=== PATIENT | male | born 1945 | race Caucasian/White ===

== ENCOUNTER 2021-05-11 14:36 | Outpatient (REF) | payer MEDICARE, SELFPAY ==
--- NOTE | ~2021-05-11 | XR_ITS ---
EXAMINATION: XR THORACIC SPINE CLINICAL INFORMATION: Back pain COMPARISON: Previous chest x-ray April 2018 TECHNIQUE: 3 views of the thoracic spine were obtained. FINDINGS: There is a moderate T6 vertebral body compression fracture that is new in the interval from 2018 but appears old. There is a moderate T7 vertebral body compression fracture that may be recent. There is increased thoracic kyphosis. There is degenerative spondylosis and degenerative disc disease of the mid and lower thoracic spine. Paraspinal soft tissues are unremarkable. XR/XR thoracic spine 3V IMPRESSION: Increased thoracic kyphosis. T6 and T7 vertebral body compression fractures. The T7 vertebral body compression fracture may be recent. Degenerative changes of the mid and lower thoracic spine.
== END 2021-05-11 14:37 | disposition home or self-care (01) ==
LOC: HO.HMGCX 14:36
PROVIDERS: PCP Internal Medicine; Visit Provider Internal Medicine
DX: Z13.89 Encounter for screening for other disorder (principal)
CPT/HCPCS: 72072

== ENCOUNTER 2021-06-18 13:27 | Outpatient (REF) | payer MEDICARE, SELFPAY ==
--- NOTE | ~2021-06-18 | MM_ITS ---
EXAMINATION: BONE DENSITOMETRY CLINICAL INDICATION: History of vertebral fractures. COMPARISON: This is the patient's baseline examination. TECHNIQUE: Using a [employer] DXA System (software version: 13.1) manufactured by [employer], dual-energy x-ray absorptiometry was performed of the lumbar spine and left hip. The images are of good technical quality. Summary results are attached. FINDINGS: AP SPINE L1-L4: BMD 0.914 g/cm2, Z-score -2.4, T-score -2.5, osteoporosis. LEFT FEMUR, NECK: BMD 0.735 g/cm2, Z-score -1.5, T-score -2.6, osteoporosis. LEFT FEMUR, TOTAL: BMD 0.749 g/cm2, Z-score -1.9, T-score -2.4, osteopenia. IDENTIFIED RISK FACTORS: Tobacco use (current smoker), history of fracture (adult). HISTORY OF FRACTURE: Tibia. Mild wedging mid thoracic vertebrae with accentuated thoracic kyphosis. MEDICATIONS: Calcium supplements or multivitamin, vitamin D. MM/XR DEXA axial skeleton IMPRESSION: 1. DIAGNOSIS: Osteoporosis based on the lowest T-score value of -2.6 in the femoral neck applying World Health Organization criteria. 2. 10-YEAR FRACTURE RISK PREDICTION, FRAX: Not performed due to previous hip/vertebral fracture. 3. Treatment Recommendations: NOF guidelines recommend consideration for treatment in postmenopausal women and men age 50 and older presenting with the following: -A hip or vertebral (clinical or morphometric) fracture. -T-score less than or equal to -2.5 at the femoral neck or spine after appropriate evaluation to exclude secondary causes. -Low bone mass at the hip or spine and a 10-year fracture probability by FRAX of greater than or equal to 3% for hip fracture or greater than or equal to 20% for major osteoporotic fracture based on the [place] adapted WHO algorithm. 4. Other Recommendations: All treatment decisions require clinical judgment and consideration of individual patient factors, including patient preferences, comorbidities, previous drug use, risk factors not captured in the FRAX model (e.g. frailty, falls, vitamin D deficiency, increased bone turnover, interval significant decline in bone density) and possible under or overestimation of fracture risk by FRAX. Additional medical evaluation for secondary cause of low bone mineral density may be appropriate. FUTURE SCAN RECOMMENDATION: People with diagnosed cases of osteoporosis or at high risk for fracture should have regular bone mineral density tests. For patients eligible for Medicare, routine testing is allowed once every 2 years. The testing frequency can be increased to one year for patients who have rapidly progressing disease, those who are receiving or discontinuing medical therapy to restore bone mass, or have additional risk factors.
[2021-06-18 15:44] LABS: Vitamin D 25-OH Total 50.7 ng/mL (>30)
== END 2021-06-18 13:28 | disposition home or self-care (01) ==
LOC: HO.MAMMO 13:27
PROVIDERS: Visit Provider Internal Medicine
DX: Z13.820 Encounter for screening for osteoporosis (principal); M81.0 Age-related osteoporosis without current pathological fracture; S22.000D Wedge compression fracture of unspecified thoracic vertebra, subsequent encounter for fracture with routine healing; Z79.899 Other long term (current) drug therapy
CPT/HCPCS: 36415; 77080; 82306

== ENCOUNTER 2024-02-22 08:26 | Outpatient (REF) | payer MEDICARE, SELFPAY ==
--- NOTE | ~2024-02-22 | XR_ITS ---
EXAMINATION: XR LUMBOSACRAL SPINE CLINICAL INFORMATION: Lower back pain COMPARISON: None available. TECHNIQUE: Three views of the lumbosacral spine. FINDINGS: The bones are diffusely demineralized. There is slight leftward translation of the L1 vertebral body with respect to L2. There is mild compression fracture of the L2 vertebral body. There is disc space narrowing at L3-L4, L4-L5 and L5-S1. There is marked degenerative facet joint disease at L5-S1. There is mild retrolisthesis of L3 respect to L4. The distal abdominal aorta measures 3.4 cm anterior to posterior. XR/XR lumbar spine 2-3V IMPRESSION: 1. Multilevel degenerative disc disease and degenerative facet joint disease. 2. Mild retrolisthesis of L3 with respect to L4. 3. Mild compression fracture of the L2 vertebral body. 4. DISTAL ABDOMINAL AORTIC ANEURYSM. Ultrasound is recommended for further evaluation.
--- NOTE | ~2024-02-22 | XR_ITS ---
EXAMINATION: XR THORACOLUMBAR SPINE CLINICAL INFORMATION: Lower thoracic, upper lumbar back pain COMPARISON: Thoracic spine 05/11/2021 TECHNIQUE: AP and lateral view of the thoracic spine. FINDINGS: The bones are diffusely demineralized. No significant change in T6 vertebral body compression fracture. No significant change in moderate T7 vertebral body compression fracture. There is interval moderate compression of the T12 vertebral body. No significant change in minimal compression of the T5 compression fracture. There is severe kyphosis. There is multilevel degenerative disc disease with anterior marginal osteophytes. The aortic arch is prominent with calcification indicative of atherosclerotic disease. The descending thoracic aorta measures 4.4 cm in transverse dimension. No change in right paraspinal fullness which is likely vascular in origin. XR/XR thoracic spine 2V IMPRESSION: 1. Interval moderate compression of the T12 vertebral body. 2. No significant change in moderate T6 vertebral body compression fracture. 3. No significant change in moderate T7 vertebral body compression fracture. 4. Severe kyphosis. 5. Question of dilatation of the descending thoracic aorta. If of clinical concern, CT scan could be obtained.
== END 2024-02-22 08:27 | disposition home or self-care (01) ==
LOC: HO.HMGCX 08:26
PROVIDERS: PCP Internal Medicine; Visit Provider Internal Medicine
DX: M54.6 Pain in thoracic spine (principal); M54.50 Low back pain, unspecified
CPT/HCPCS: 72070; 72100

== ENCOUNTER 2024-05-01 07:30 | Outpatient (REF) | payer MEDICARE, SELFPAY ==
--- NOTE | ~2024-05-01 | CT_ITS ---
EXAMINATION: CT ANGIOGRAM OF THE CHEST, ABDOMEN WITHOUT AND WITH CONTRAST CLINICAL INFORMATION: Aortic aneurysm COMPARISON: None. TECHNIQUE: Multidetector volumetric CT imaging of the chest, abdomen, and pelvis was performed before and after the administration of 80 mL of Omnipaque 350 intravenous contrast without immediate adverse reactions. 3D POSTPROCESSING: Multiple 3-D angiographic images were processed from the initial data set by the laboratory technologist at the modality workstation under concurrent physician supervision. DOSE LOWERING TECHNIQUES: This CT examination was performed using dose optimization techniques as appropriate, variously including the following: - Automated exposure control - Adjustment of mA and/or kV according to patient size (this includes techniques or standardized protocols for targeted exams where dose is matched to indication/reason for exam; i.e. extremities or head) - Use of iterative reconstruction technique DLP: 245 mGy-cm. FINDINGS: VASCULAR: ASCENDING AORTA: Mildly dilated. Mid segment measures 4.0 x 3.9 cm. Scattered atherosclerotic wall calcifications. AORTIC ARCH: Normal in caliber measuring 3.3 x 2.8 cm. Calcified and noncalcified plaque is present. The vessel arch anatomy is present. There is eccentric noncalcified plaque in the proximal left subclavian artery causing a borderline mild to moderate stenosis. Remaining branch vessels are patent DESCENDING AORTA: Normal in caliber and patent. Mid segment measures 3.4 x 3.3 cm. Scattered calcified and noncalcified plaque ABDOMINAL AORTA: Mild fusiform aneurysms seen in the infrarenal abdominal aorta with maximum diameter of 3.0 x 2.8 cm. There is a large amount of noncalcified plaque within the infrarenal abdominal aorta with irregular lumen and mild luminal stenosis. CELIOMESENTERIC ARTERIES: Celiac artery, superior mesenteric artery and inferior mesenteric artery are patent without significant stenosis. RENAL ARTERIES: Single right renal artery. Calcified plaque seen at the ostium of the right renal artery without significant stenosis. There are 2 left renal arteries with a smaller accessory lower pole artery is present. Calcified plaque seen at the ostium of the main left renal artery with mild stenosis RIGHT ILIOFEMORAL ARTERIES: Calcified and noncalcified atherosclerotic plaque is seen in the common iliac artery without significant stenosis. 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 Scattered calcified plaque is seen throughout the iliac arteries. No significant stenosis NONVASCULAR: LUNGS: Mild to moderate centrilobular emphysema. Subpleural atelectasis seen in the lingula. No focal infiltrates. There is a 6 mm nodule in the left lower lobe. MEDIASTINUM: Heart is normal in size. Pericardium is normal. No mediastinal or hilar lymphadenopathy. CORONARY ARTERY CALCIFICATION: Present PLEURA: There is no pleural effusion. No pleural mass or thickening. LIVER, GALLBLADDER, AND BILIARY TREE: The liver is normal in size, shape, and attenuation. No focal hepatic lesion or biliary ductal dilatation is present. The gallbladder is unremarkable with no evidence of radiopaque gallstones, gallbladder wall thickening, or obvious pericholecystic inflammatory changes. PANCREAS: Unremarkable. SPLEEN: Unremarkable. ADRENAL GLANDS: Unremarkable. KIDNEYS AND URETERS: The kidneys are normal in size, shape, and attenuation. No hydronephrosis, hydroureter, or calculi seen. No perinephric stranding. Simple fluid density cyst in the upper pole the right kidney measuring 3.1 cm. No follow-up indicated. GASTROINTESTINAL TRACT: The small and large bowel are unremarkable. The appendix is unremarkable. ABDOMINAL WALL: No significant hernia is appreciated. LYMPH NODES: Normal. OSSEOUS STRUCTURES: Age-indeterminate compression fracture of T12 CT/CT angio chest aorta IMPRESSION: 1. Mild dilation of the ascending thoracic aorta with maximum diameter 4.0 cm. 2. 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 Large amount of noncalcified plaque with irregular lumen and mild luminal stenosis.Based on published guidelines in J Am Norma Radiol 2013; 10(10):789-794 and J Vasc Surg. 2018; 67:2-77, the recommendation for an abdominal aortic aneurysm with diameter 3.0-3.4 cm is follow-up every 3 years. 3. 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 4. Emphysema. 6 mm nodule in the left lower lobe. According to the UPDATED 2017 Fleischner Society recommendations, the advised follow-up imaging for a single 6-8 mm solid nodule is follow-up CT at 6 to 12 months. In high-risk patients, subsequent CT follow-up at 18 to 24 months is recommended. In low-risk patients, subsequent CT follow-up at 18 to 24 months is optional.
[2024-05-01] MEDS: iohexoL 350 MG/ML 100 ML INFUS..BTL 80 ML IV (08:45)
[2024-05-02 10:36] LABS: Creatinine POC 0.6 mg/dL (0.5-1.4); GFR POC > 60
== END 2024-05-01 07:31 | disposition home or self-care (01) ==
LOC: HO.CT 07:30
PROVIDERS: PCP Internal Medicine; Visit Provider Internal Medicine
DX: I71.40 Abdominal aortic aneurysm, without rupture, unspecified (principal)
CPT/HCPCS: 71275; 74175; 82565; Q9967

== ENCOUNTER 2024-05-07 13:49 | Outpatient (AMB) | payer MEDICARE, SELFPAY ==
--- NOTE | 2024-05-07 14:06 | MHC.OFFVIS ---
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 Allergies aspirin [ASA] Allergy (Mild, Unverified 07/03/20 16:19) ANGIOEDEMA Aspir-81 Allergy (Unknown, Uncoded 12/11/19 00:00) Medication List - Last Reconciled 05/07/24 by Horacio Rahman MD allopurinol 300 mg PO DAILY apixaban (Eliquis) 5 mg PO BID ascorbic acid (vitamin C) 2 grams PO Q8H atorvastatin 10 mg PO BEDTIME biotin mcg PO cholecalciferol (vitamin D3) 125 mcg PO DAILY furosemide 40 mg PO BID metoprolol succinate ER 50 mg PO DAILY vqtugqwrmvga-pappwwzr-[id number] 1 tab PO DAILY HPI Comments Details: Andrew was referred here for evaluation of new onset atrial fibrillation that was recently detected about couple months ago when he had a home visit for his spine symptoms which he self diagnosed compression fracture and was later confirmed by spine x-ray. During that time was noted to irregular heartbeat and subsequent EKG confirmed presence of atrial fibrillation and was started on adequately oral anticoagulation therapy. He has been on metoprolol therapy in the past and is currently 50 mg of metoprolol. No symptoms of palpitations. Last time he says he had a disc herniation September but did not seek medical care. No EKGs were performed. Last time he might have seen you about couple years ago he is not sure about it. He said couple years ago he was exposed to chemical and had subsequently developed shortness of breath. Unsure as to this duration of atrial fibrillation as he has not had regular visits with you. He has prior history of hypertension which is currently controlled. He said he intermittently gets short of breath and then subsequently gets urge to urinate and then his shortness of breath improves. He has not a great historian. He has been on Lasix for many years for bilateral leg swelling. Never been diagnose with congestive heart failure in the past. However he says if he reduces his Lasix dose he does have increased swelling of both his legs and has to take current dose of 40 mg b.i.d.. This is been going on for many years before the diagnose of atrial fibrillation. He denies any classic symptoms atrial fibrillation of palpitations, irregular heartbeat, lightheadedness. Denies any exertional chest pain. 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 He has not had any bleeding issues or neurologic events. [facility] Medical History HTN (hypertension) Persistent atrial fibrillation Surgical History History of surgery on lower extremity Hx of hernia repair Family History Father No problems noted. Mother No problems noted. Social History Patient Tobacco Use Status: Current everyday Tobacco user Review of Systems Const Denies chills, Denies daytime sleepiness, Denies fatigue, Denies fever(s), Denies frequent falls, Denies poor appetite, Denies snoring, Denies stops breathing during sleep, Denies weakness, Denies weight gain and Denies weight loss Eyes Denies loss of vision ENT Denies dizziness and Denies hearing loss Card Denies chest pain, Denies claudication, Denies leg edema, Denies lightheadedness, Denies palpitations, Denies dyspnea, Denies dyspnea on exertion and Denies orthopnea Resp Denies cough, Denies excessive phlegm production, Denies dyspnea, Denies dyspnea on exertion, Denies snoring and Denies wheezing GI Denies abdominal pain, Denies hematochezia, Denies change in bowel habits, Denies nausea and Denies vomiting Denies dysuria and Denies urinary frequency Musc Denies arthralgias, Denies muscle weakness, Denies numbness and Denies other (frequent falls) Skin/Breast Denies nail changes and Denies rash Neuro Denies Abnormal speech present, Denies dizziness, Denies frequent falls, Denies loss of vision, Denies memory loss, Denies numbness and Denies weakness Psych Denies depression and Denies memory loss Endo Denies fatigue and Denies palpitations Clayton/Lymph Reports easy bruising and Reports other (anemia) Aller/Immun Denies wheezing Physical Exam Vital Signs: Last Vital Signs Pulse 119 H 05/07/24 14:07 BP 126/82 05/07/24 14:07 BMI result Body Mass Index 28.0 Const General: cooperative, comfortable, no acute distress, awake and Physically active Nutritional Appearance: obese Orientation/consciousness: patient oriented x3 Limitations: no limitations HEENT Head: Yes normocephalic and Yes atraumatic Neck Neck: Yes trachea midline, Yes supple and Yes no JVD Chest Other: Dorsal kyphosis Resp Effort & Inspection: normal respiratory effort Auscultation: clear to auscultation bilaterally Cardio Jugular venous distension: no JVD Rate: tachycardic Rhythm: abnormal rhythm irregularly irregular Heart sounds: S1 normal heart sound present, S2 normal heart sound present, no click, no gallops and no rubs GI Inspection: Yes obesity Auscultation: normal bowel sounds Skin General skin exam: no rashes or lesions noted Neuro General: patient oriented x3 and no focal motor deficits Speech: No Abnormal speech present Extrem General: Yes no clubbing, cyanosis or edema Psych Appearance: grossly normal Office Procedures EKG Details: EKG shows atrial fibrillation with rapid ventricular response with PVC with nonspecific ST T wave changes. [id number], Complete Assessment & Plan Assessment & Plan (1) Persistent atrial fibrillation: Code(s): I48.19 - Other persistent atrial fibrillation Category: Medical Plan: Newly detected atrial fibrillation in the last 2 months which was incidental without any obvious symptoms. Exact duration of atrial fibrillation unclear as he has not had regular visits with a physician. He denies any symptoms of palpitation and today despite his heart rate 120s has no symptoms of palpitation fluttering in his chest. He does have exertional shortness of breath for couple years and does not think that this is cardiac related. He said he was exposed to a chemical few years ago and that led to his symptoms of shortness of breath. He does have also significant kyphosis. He has been on Lasix for many years before even his symptoms of shortness of breath for bilateral leg edema. He has never been diagnose with congestive heart failure in the past although is at high risk for the same. He has intermittent symptoms of significant shortness of breath which responds to natural natriuresis. For now clinically does appear to be in overt heart failure. Duration of atrial fibrillation exactly unknown and his further treatment based on the findings of underlying structural abnormality. I would suggest an echocardiogram in near future as soon as possible to assess for biatrial chamber size and LV function. If he has significant biatrial enlargement will require antiarrhythmic drug support prior to pursuing rhythm control approach. This was discussed with him in details. All of the clinical data suggest to pursue rhythm control approach in newly diagnose atrial fibrillation with do the same. We discussed about synchronized cardioversion with the procedure in detail including risks, benefits and alternatives. Absolute importance of continue full oral anticoagulation long-term was discussed. CHADSVASc score of at least 3. Will increase metoprolol to 100 mg daily given poor rate control. Management of atrial fibrillation discussed in details, he was accompanied by his daughter who is a nurse and she understands management well. (2) HTN (hypertension): Code(s): I10 - Essential (primary) hypertension Category: Medical Plan: Hypertension which is currently well optimized advised to monitor blood pressure at home maintain a log. Goal blood pressure less than 130/84. Advised low-salt diet. Continue current treatment. Consider workup for sleep apnea. Will follow up after cardioversion. Thank you for allowing me to partake in his care Orders: Orders Lipid Panel 05/07/24 I48.19 - Other persistent atrial fibrillation CA echo transthoracic complete 05/07/24 I48.19 - Other persistent atrial fibrillation Complete Blood Count no Diff 05/07/24 I48.19 - Other persistent atrial fibrillation Basic Metabolic Panel 05/07/24 I48.19 - Other persistent atrial fibrillation B Type Natriuretic Peptide 05/07/24 I48.19 - Other persistent atrial fibrillation Medications: New metoprolol succinate ER (Toprol XL) 100 mg PO DAILY 30 tabs 5RF I48.19 - Other persistent atrial fibrillation Coding Level of Care Code New Pt Level 4 (80032) Diagnoses Persistent atrial fibrillation I48.19 HTN (hypertension) I10 CPT Codes EKG - CPT: 03319-[id number], Complete ([id number])
[2024-05-07 14:07] VITALS: BP 126/82; PULSE 119; BMI 28.0
== END 2024-05-07 14:57 | disposition home or self-care (01) ==
PROVIDERS: PCP Internal Medicine; Visit Provider Internal Medicine Cardiovascular Disease
DX: I48.19 Other persistent atrial fibrillation (principal); I10 Essential (primary) hypertension
CPT/HCPCS: 93010; 99204

== ENCOUNTER → 2024-05-07 13:49 | Outpatient (REF) | payer MEDICARE, SELFPAY | LOC: HO.CARD 13:49 | PROVIDERS: PCP Internal Medicine; Visit Provider Internal Medicine Cardiovascular Disease | DX: I48.19 Other persistent atrial fibrillation (principal); I10 Essential (primary) hypertension | CPT/HCPCS: 93005; 99202 ==

== ENCOUNTER → 2024-05-10 07:39 | Outpatient (REF) | payer MEDICARE, SELFPAY ==
--- NOTE | 2024-05-10 07:55 | CA_ITS ---
Transthoracic Echocardiogram Patient (Last, First, Middle): Andrew Orlando R Gender: Male Date of : 1945 Age: 78 Procedure Date: 05/10/2024 Procedure Type: Transthoracic Echocardiogram Location: OP Height: 182.88 cm Weight: 90.72 kg BSA: 2.13 m2 Heart Rate: bpm BP: 130 / 85 mmHg Sanitation Supervisor: ALESSANDRO Referring MD: Horacio Rahman MD Symptoms: I48.19 - Other persistent atrial fibrillation Study Quality: Adequate w/Contrast ECG Rhythm: Atrial Fibrillation Conclusions: - The left ventricular systolic function is severely decreased. The visually estimated ejection fraction is between 15-20%. - No obvious valvular pathology seen on this study. Findings Procedure Information Contrast agent, definity, is being given per protocol without apparent complications. Left Ventricle Normal left ventricular cavity size. There is mildly increased left ventricular wall thickness. The left ventricular systolic function is severely decreased. The visually estimated ejection fraction is between 15 20%. There is severe global hypokinesis. Diastolic function is indeterminate on the basis of available data. Right Ventricle Mildly increased right ventricular cavity size. There is mildly decreased right ventricular systolic function. Atria The left atrium is moderately dilated. The right atrium is mildly dilated. Aortic Valve There is mild calcification of the aortic valve. There is no aortic valve stenosis. There is no aortic valve regurgitation. Mitral Valve There is mild mitral annular calcification. There is trace mitral valve regurgitation. There is no mitral valve stenosis. Pulmonic Valve The pulmonic valve is likely normal. Tricuspid Valve There is mild tricuspid valve regurgitation. There is no evidence of pulmonary hypertension. Great Vessels The asc aorta and aortic arch are normal in size. Venous The inferior vena cava is normal in size and collapses greater than 50% with inspiration. Pericardium/Pleural There is no evidence of pericardial effusion. Prior Study Comparison Changes noted compared to prior study dated: 05/02/2017. LVEF is diminished. Recommendations, Care & Conclusions No obvious valvular pathology seen on this study. Measurements 2D Linear Measurements IVSd: 1.19 0.6-0.9/0.6-1.0 cm LVIDd: 5.15 3.9-5.3/4.2-5.9 cm LVIDd Index: 2.42 2.4-3.2/2.2-3.1 cm/m2 LVIDs: 4.14 2.0-3.6 cm LVPWd: 1.16 0.7-1.1 cm LA Diam: 5.30 2.7-3.8/3.0-4.0 cm LAIDs Index: 2.49 1.5-2.3 cm/m2 LV Mass: 296.70 67-162/88-224 g LV Mass Index: 139.29 43-95/49-115 g/m2 LVOT Diam: 2.10 3.0+(-)1.3 cm 2D Systolic Function EF 4C: 26.40 >55% EF 2C: 12.20 >55% EF BiP: 18.50 >55% Mitral Valve MV Pk E: 0.71 MV Decel Time: 184.00 E'Lateral: 7.40 E'Medial: 5.08 E/E' Med: 14.00 E/E' Lat: 9.60 PHT: 54.00 MVA PHT: 4.07 Decel Fisher: 3.87 Aortic Valve AoV Pk Vitaliy: 1.04 AoV Mn Vitaliy: 0.76 AoV VTI: 0.17 AoV Pk Grad: 4.00 Aov Mn Grad: 3.00 JODI Cont.VTI: 2.40 LVOT LVOT Pk Vitaliy: 0.80 LVOT Mn Vitaliy: 0.52 LVOT VTI: 0.12 LVOT Pk Grad: 3.00 LVOT Mn Grad: 1.00 LVOT Diam: 2.10 LVOT Area: 3.46 Diastolic Function MV Pk E: 0.71 E'Medial: 5.08 E/E' Med: 14.00 E' Laterial: 7.40 E/E' Lat: 9.60 Right Ventricle TAPSE (mm): 12.10 TVS' Vitaliy: 8.23 Tricuspid Valve TR Pk Vitaliy: 2.50 TR Pk Grad: 25.00 RA Press: 3.00 RVSP: 28.00 Great Vessels Aorta Sinus of Valsalva: 3.40 2.0-3.5 cm Ao Asc: 3.90 2.1-3.4 cm Ao Arch: 3.50 Updated in Other Vendor System with Status of Final Rafael Alvarado MD electronically signed on 05/10/2024 11:13:38 AM with status of Final
[2024-05-10 08:12] LABS: Hematocrit 45.2 % (42.0-52.0); Hemoglobin 14.9 g/dl (14.0-18.0); Mean Corpuscular Hemoglobin 33.9 pg (27.0-33.0); Mean Corpuscular Volume 102.7 fL (80.0-98.0); Mean Platelet Volume 10.9 fL (9.4-12.4); Platelet Count 161 X10*3/uL (160-400); Red Cell Distribution Width 13.3 % (11.0-16.0); White Blood Count 10.7 X10*3/uL (4.8-10.8)
[2024-05-10 08:35] LABS: Anion Gap 19 (12-20); Blood Urea Nitrogen 20 mg/dL (9-16); Calcium 10.1 mg/dL (8.4-10.2); Carbon Dioxide 25 mmol/L (22-29); Chloride 102 mmol/L (96-108); Cholesterol 144 mg/dL (<200); Estimated Glomerular Filt Rate > 60; Glucose Random 158 mg/dL (60-115); HDL Cholesterol 47 mg/dL (>40); LDL Cholesterol Calculated 79 mg/dL (<100); Potassium 4.2 mmol/L (3.3-5.1); Sodium 142 mmol/L (135-145); Triglycerides 94 mg/dL (<150)
[2024-05-10 08:40] LABS: B Type Natriuretic Peptide 314 pg/mL (<100)
== END ==
LOC: HO.CARD 07:39
PROVIDERS: PCP Internal Medicine; Visit Provider Internal Medicine Cardiovascular Disease
DX: Z13.6 Encounter for screening for cardiovascular disorders (principal); I48.19 Other persistent atrial fibrillation
CPT/HCPCS: 36415; 80048; 80061; 83880; 85027; 93306; Q9957

== ENCOUNTER → 2024-05-10 07:55 | Outpatient (BNV) | payer MEDICARE, SELFPAY | PROVIDERS: PCP Internal Medicine; Visit Provider Internal Medicine | DX: I36.1 Nonrheumatic tricuspid (valve) insufficiency (principal); I34.81 Nonrheumatic mitral (valve) annulus calcification; I35.8 Other nonrheumatic aortic valve disorders; R93.1 Abnormal findings on diagnostic imaging of heart and coronary circulation | CPT/HCPCS: 93306 ==

== ENCOUNTER → 2024-06-22 07:39 | Outpatient (REF) | payer MEDICARE, SELFPAY ==
--- NOTE | ~2024-06-22 | NM_ITS ---
Lexiscan Myocardial perfusion study Indication: Atrial fibrillation with LV systolic dysfunction to evaluate for myocardial ischemia Technique: The patient was brought in for a Lexiscan perfusion study on 06/22/2024 and was injected 0.4 mg of Lexiscan intravenously. Within a minute of this injection 30 mCi of sestamibi was given intravenously. Images were obtained using the SPECT gamma camera interlaced with the gating device. Images were obtained in supine position. Resting perfusion study was performed on 06/25/2024. Patient was administered 30 mCi of sestamibi intravenously at rest. Images were then obtained in supine position. Images were obtained without without CT attenuation. Total DLP 120 mGy-cm. Images were processed with the software and compared side to side in short axis, horizontal long axis and vertical long axis views. Findings: The stress perfusion study showed nonattenuated images show mildly reduced uptake in the distal anterior wall of the myocardium, moderately reduced uptake in the apex of the myocardium and mildly reduced uptake in the distal lateral and inferolateral wall of the LV myocardium. Attenuated corrected images show mildly reduced uptake in the distal anterior and apical wall of the LV myocardium. The gated study shows reduced LV systolic function with calculated LVEF of 36%. LV cavity is mildly to moderately in size. The gated study shows diffusely reduced wall thickening and contraction of segments. Resting study shows nonattenuated images show improved uptake in the distal anterior as well as apex of the LV myocardium with no improvement in the distal lateral and inferolateral wall. Attenuated corrected images show improved uptake in the distal anterior and apical wall of the LV myocardium. Gating at rest reveals diffuse wall motion abnormality with ejection fraction at 39%. The findings are consistent with suggestive of mild ischemia of the distal anterior and apical wall in the mid to distal LAD territory.. NM/NM cardiolite stress test Impression: 1. Myocardial perfusion imaging study shows mild ischemia mid to distal LAD territory. 2. Gated LVEF is 36% with stress 3. Transient ischemic dilatation present Nondiagnostic changes on EKG. Electronically signed by: Horacio Rahman MD 06/26/2024 04:24 PM EDT
--- NOTE | 2024-06-22 07:43 | CA_ITS ---
Acquisition Time: 2024-06-22 07:58:12 Total Exercise Time: 00:02:00 Test Indications: AFIB, SOB Medications: SEE H Protocol: LEXISCAN Max HR: 121 BPM 84% of Pred: 144 BPM Max BP: 138/078 mmHG Max Work Load: 1.0 METS Pharmacological stress test with Lexiscan injection, while sitting and moving left arm, without anginal symptoms, with isolated PVCs, with normotensive response to injection, with nondiagnostic EKG for ischemia. In recovery he was treated with Aminophylline 75mg IVP to reverse Lexiscan. Nuclear images pending. Test reviewed with Dr Alvarado. Note: 20 min prior to start of test he had Afib rates 90s- low 100s sitting. He was given Metoprolol tartrate 25mg po. He had not taken his usual Metoprolol yet this am. Referred By: Horacio Rahman Overread By: ANA MARIA LAINEZ
== END ==
LOC: HO.CARD 07:39
PROVIDERS: PCP Internal Medicine; Visit Provider Internal Medicine Cardiovascular Disease
DX: I48.19 Other persistent atrial fibrillation (principal); R06.02 Shortness of breath; I10 Essential (primary) hypertension
CPT/HCPCS: 78452; 93017; A9500; J0280; J2785

== ENCOUNTER → 2024-06-22 07:43 | Outpatient (BNV) | payer MEDICARE, SELFPAY | PROVIDERS: PCP Internal Medicine; Visit Provider Nurse Practitioner Family | DX: I48.91 Unspecified atrial fibrillation (principal) | CPT/HCPCS: 78452; 93016; 93018 ==

== ENCOUNTER 2025-04-15 12:00 | Outpatient (REF) | payer MEDICARE, SELFPAY ==
--- OUTSIDE RECORDS SUMMARY | 2025-04-15 12:42 | XMS_ITS | Patient Health Record ---
Author Organization [facility] Address [address] [place] [address] Care Team Providers Care Mask Inspector Name Role Phone Osiel Butts MD Primary Care Provider Unavailab Zechariah David Unavailable [phone] Reason For Referral No Information Medications Medication SIG (Take, Route, Frequency, Duration) Notes Start Date End Date Status Furosemide 40 MG TAKE 1 TABLET BY ILYA TH TWICE A DAY Oral for 90 Active Allopurinol 300 MG TAKE 1 TABLET BY ILYA TH EVERY DAY Oral for 90 Active Metoprolol Tartrate 50 MG TAKE 1 TABLET BY MOUTH EVERY DAY Oral for 90 Active Atorvastatin Calcium 10 MG TAKE 1 TABLET BY MOUTH EVERY DAY Oral for 90 Active Immunizations Vaccine Route Administration Date Status Comme nts Influenza Unknown 10/13/2022 Refused Social History Tobacco Use: Social History Observation Description Date Details (start date - stop date) Current Smoker NA - NA Tobacco Use/Smoking Question Answer Notes Patient is a current smoker Alcohol Screen Question Answer Notes Did you have a drink contain ing alcohol in the past year? Yes How often did you have a dri nk containing alcohol in the past year? 2 to 4 times a month (2 points) How many drinks did you have on a typical day when you were drinking in the past year? 1 or 2 drinks (0 point) How often did you have 6 or more drinks on one occasion in the past year? Never (0 point) Points 2 Interpretation Negative Section Notes: Smokes 7-8 cigs QD; no sig a lcohol Problems Problem Type SNOMED Code ICD Code Onset Dates Problem Status W/U Status Risk Notes Problem [id number] Heme + stool (R19.5) Active confirmed Plan Of Treatment No Information Insurance Providers Payer Name Payer Address Payer Phone Subscriber Number Group Number Insured Name Patient Relationship to Insured Coverage Start Date Coverage End Date MEDICARE OF [place] [address] [place] [id number] [phone] [id number] GEOVANNY MONREAL Self - patient is the insured [employer] ATT[employer] CLAIMS [address] [place] [address] [id number] GEOVANNY MONREAL Self - patient is the insured Medical (General) History Medical History History ICD Code COPD Follicular lymphoma [address] Carbajal Gout Edema HTN Denies [place],DM,CVA,renal disease Surgical History Surgery Date(Month/Year) Right hernia repair Left leg fracture
[2025-04-15 13:13] LABS: MANUAL DIFF FLAG NO
[2025-04-15 13:25] LABS: Basophils Absolute Auto 0.1 X10*3/uL (0.0-0.2); Basophils Percent Auto 0.8 % (0-2); Eosinophils Absolute Auto 0.3 X10*3/uL (0.0-0.4); Eosinophils Percent Auto 3.5 % (0-4); Hemoglobin 15.3 g/dl (14.0-18.0); Imm Gran Abs Auto 0.03 X10*3/uL (0.00-0.03); Imm Gran Pct Auto 0.3 % (0.0-0.4); Lymphocytes Absolute Auto 3.5 X10*3/uL (1.2-4.9); Lymphocytes Percent Auto 38.6 % (20-40); Mean Corpuscular HGB Conc 33.3 g/dl (31.0-36.0); Mean Corpuscular Hemoglobin 33.8 pg (27.0-33.0); Mean Corpuscular Volume 101.8 fL (80.0-98.0); Mean Platelet Volume 11.8 fL (9.4-12.4); Monocytes Absolute Auto 1.1 X10*3/uL (0.1-1.2); Monocytes Percent Auto 12.4 % (2-11); Neutrophils Absolute Auto 4.1 x10*3/uL (2.0-8.3); Neutrophils Percent Auto 44.4 % (45-73); Platelet Count 148 X10*3/uL (160-400); Red Blood Count 4.52 X10*6/uL (4.60-5.80); Red Cell Distribution Width 13.2 % (11.0-16.0); White Blood Count 9.2 X10*3/uL (4.8-10.8)
[2025-04-15 14:13] LABS: Alanine Aminotransferase 33 U/L (0-40); Albumin Level 4.5 g/dL (3.5-5.0); Alkaline Phosphatase 100 U/L (39-117); Anion Gap 17 (12-20); Aspartate Amino Transferase 33 U/L (5-37); Bilirubin Total 0.9 mg/dL (0.0-1.0); Blood Urea Nitrogen 16 mg/dL (9-16); Calcium 9.9 mg/dL (8.4-10.2); Carbon Dioxide 28 mmol/L (22-29); Chloride 101 mmol/L (96-108); Cholesterol 137 mg/dL (<200); Estimated Glomerular Filt Rate > 60; Glucose Fasting 163 mg/dL (60-99); HDL Cholesterol 42 mg/dL (>40); LDL Cholesterol Calculated 74 mg/dL (<100); Potassium 4.6 mmol/L (3.3-5.1); Sodium 141 mmol/L (135-145); Total Protein 7.4 g/dL (6.5-8.0); Triglycerides 108 mg/dL (<150); Uric Acid 5.7 mg/dL (3.4-7.0)
== END 2025-04-15 12:01 | disposition home or self-care (01) ==
LOC: HO.HMGCLDS 12:00
PROVIDERS: PCP Internal Medicine; Referring Provider Internal Medicine Cardiovascular Disease; Visit Provider Internal Medicine
DX: E78.5 Hyperlipidemia, unspecified (principal); M10.9 Gout, unspecified; R53.83 Other fatigue
CPT/HCPCS: 36415; 80053; 80061; 84550; 85025

== ENCOUNTER 2025-06-10 15:00 | Outpatient (AMB) | payer MEDICARE, SELFPAY ==
--- NOTE | 2025-06-10 15:02 | A.OFFVIS_ITS ---
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[employer] Required: No Education Department Chair: Education Department Chair Present Accompanied by: Daughter Allergies aspirin (ASA) Allergy (Mild, Unverified 07/03/20 16:19) ANGIOEDEMA Aspir-81 Allergy (Unknown, Uncoded 12/11/19 00:00) Medication List - Last Reconciled 06/10/25 by Horacio Rahman MD allopurinol 300 mg PO DAILY amiodarone 200 mg PO DAILY apixaban (Eliquis) 5 mg PO BID ascorbic acid (vitamin C) 2 grams PO Q8H atorvastatin 10 mg PO BEDTIME biotin mcg PO cholecalciferol (vitamin D3) 125 mcg PO DAILY furosemide 40 mg PO BID metoprolol succinate ER 100 mg PO DAILY pqcqiwxqmfcp-fktfnglp-nizoqh 1 tab PO DAILY HPI Comments Details: Andrew comes for follow-up after a long gap after a year. He said he never got a follow-up but he has been taking his medications. Is refused to take amiodarone due to perceived side effects and did not want to undergo cardioversion due to perceived side effects of possible more pain related to his spine. He said he is not willing to undergo any procedure that could worsen in his spine disease. He said he is dealing with a lot of pain related to it and is limited to walking about 100 ft before he has to stop because of the back pain. He has been taking his diuretics and he said he has congestive heart failure symptoms have improved. He is also currently taking metoprolol therapy. Remains in atrial fibrillation today's EKG. Last year when he had an echocardiogram which showed markedly reduced LV ejection fraction of 10-15% subsequent stress test as possible suggestion of anterior ischemia with reduced ejection fraction he has had no hospitalization related to heart failure. He is taking Eliquis therapy with no bleeding issues. REPLACED BY [facility] Medical History Heart failure with reduced ejection fraction HTN (hypertension) Persistent atrial fibrillation Surgical History History of surgery on lower extremity Hx of hernia repair Family History Father No problems noted. Mother No problems noted. Social History Patient Tobacco Use Status: Current everyday Tobacco user Review of Systems Const Denies chills, Denies fatigue, Denies fever(s), Denies frequent falls, Denies weakness, Denies weight gain and Denies weight loss ENT Denies dizziness Card Denies chest pain, Denies leg edema, Denies lightheadedness, Denies palpitations, Denies dyspnea, Denies dyspnea on exertion, Denies orthopnea and Denies other (loss of consciousness) Resp Denies cough, Denies dyspnea and Denies dyspnea on exertion GI Denies hematochezia and Denies change in stool character Musc Denies abnormal gait, Denies muscle weakness, Denies numbness, Denies radiating pain into limb and Denies tingling Neuro Denies abnormal gait, Denies dizziness, Denies frequent falls, Denies numbness, Denies tingling and Denies weakness Endo Denies fatigue and Denies palpitations Physical Exam Vital Signs: Last Vital Signs Pulse 99 06/10/25 15:05 BP 150/90 H 06/10/25 15:05 BMI result Body Mass Index 28.9 Const General: cooperative, comfortable, no acute distress, alert and awake Nutritional Appearance: obese Orientation/consciousness: patient oriented x3 Neck Neck: Yes trachea midline, Yes supple and Yes no JVD Resp Effort & Inspection: normal respiratory effort Auscultation: clear to auscultation bilaterally Cardio Jugular venous distension: no JVD Rhythm: abnormal rhythm irregularly irregular Heart sounds: S1 normal heart sound present, S2 normal heart sound present, no click, no gallops and no murmurs GI Auscultation: normal bowel sounds Skin General skin exam: no rashes or lesions noted Neuro General: patient oriented x3 and no focal motor deficits Extrem General: Yes no clubbing, cyanosis or edema and Yes pedal edema Office Procedures EKG Details: EKG shows atrial fibrillation with poor R-wave progression most likely due to body habitus nonspecific ST-T changes 35781-[id number], Complete Assessment & Plan Assessment & Plan (1) Persistent atrial fibrillation: Code(s): I48.19 - Other persistent atrial fibrillation Category: Medical Plan: Persistent atrial fibrillation not more than for a year and does not want to go on amiodarone therapy. Without that I do not think that will be any likelihood of pursuing rhythm control approach and given that he has been more than a year likelihood of pursuing rhythm control approach is very low. Rate is adequately controlled will continue now rate control strategy. Continue full oral anticoagulation, currently on Eliquis 5 mg b.i.d.. Long-term complications of atrial fibrillation was discussed last year and again has to reducing longevity as well as causing more heart failure syndrome. (2) Heart failure with reduced ejection fraction: Code(s): I50.20 - Unspecified systolic (congestive) heart failure Category: Medical Plan: Heart failure with reduced ejection fraction with markedly reduced LV ejection fraction on last echocardiogram last year. No follow-up since then. His myocardial perfusion imaging suggested possible coronary disease. He needs to undergo coronary CTA to evaluate for significant coronary artery disease. Also suggest repeat echocardiogram. Needs neurohormonal modulation with Entresto in addition to metoprolol therapy. This was discussed with him. Will start on Entresto therapy. Advised to monitor blood pressure at home. Check BMP in 1 week. Follow up in the clinic after above workup in 2 months time, sooner p.r.n.. Thank you for allowing me to partake in his care Orders: Orders Basic Metabolic Panel 1 Week I50.20 - Unspecified systolic (congestive) heart failure CA echo transthoracic complete Today I50.20 - Unspecified systolic (congestive) heart failure CT Cardiac Coronary Angio 1 Week I50.20 - Unspecified systolic (congestive) heart failure Medications: New sacubitril-valsartan 24-26 mg (Entresto) 1 tab PO BID 60 tabs 4RF Discontinued amiodarone Discontinued Reason: Patient Refused 200 mg PO DAILY 30 tabs 1RF Coding Level of Care Code Est Pt Level 4 (54717) Complex EM visit Add On G2211 Diagnoses Persistent atrial fibrillation I48.19 Heart failure with reduced ejection fraction I50.20 CPT Codes EKG - CPT: 98362-[id number], Complete ([id number])
[2025-06-10 15:05] VITALS: BP 150/90; PULSE 99; BMI 28.9
--- OUTSIDE RECORDS SUMMARY | 2025-06-10 16:41 | XMS_ITS | Patient Health Record ---
Author Organization [facility] Address [address] [place] [address] Care Team Providers Care Java Developer Analyst Name Role Phone Benjamín (RETIRED) Osiel BAKER Primary Care Provider Unavailable Zechariah Paulson Unavailable [phone] Reason For Referral No Information Medications Medication [...] Problem Status W/U Status Risk Notes Problem [id number] Heme + stool (R19.5) Active confirmed Plan Of Treatment No Information Insurance Providers Payer Name Payer Address Payer Phone Subscriber Number Group Number Insured Name Patient Relationship to Insured Coverage Start Date Coverage End Date MEDICARE OF [place] [address] [place] [address] [id number] SHIVANI JordanGEOVANNY Self - patient is the insured MED[employer] ATTN CLAIMS [address] [place] [address] [id number] GEOVANNY MONREAL Self - patient is the insured Medical (General) History Medical History History ICD Code COPD Follicular lymphoma [address] Carbajal Gout Edema HTN Denies [place],DM,CVA,renal disease Surgical History Surgery Date(Month/Year) Right hernia repair Left leg fracture
== END 2025-06-10 15:44 | disposition home or self-care (01) ==
LOC: HO.HCS 15:01
PROVIDERS: PCP Internal Medicine; Visit Provider Internal Medicine Cardiovascular Disease
DX: I48.19 Other persistent atrial fibrillation (principal); I50.20 Unspecified systolic (congestive) heart failure
CPT/HCPCS: 93010; 99214; G2211

== ENCOUNTER → 2025-06-10 15:00 | Outpatient (BNVA) | payer MEDICARE, SELFPAY | PROVIDERS: PCP Internal Medicine; Visit Provider Internal Medicine Cardiovascular Disease | DX: I48.19 Other persistent atrial fibrillation (principal); I50.20 Unspecified systolic (congestive) heart failure; R94.31 Abnormal electrocardiogram [ECG] [EKG] | CPT/HCPCS: 93005; 99212 ==

== ENCOUNTER 2025-06-24 13:38 | Outpatient (REF) | payer MEDICARE, SELFPAY ==
--- OUTSIDE RECORDS SUMMARY | 2025-06-24 15:51 | XMS_ITS | Patient Health Record ---
Author Organization [facility] Address [address] [place] [address] Care Team Providers Care Collections Analyst Name Role Phone Benjamín (RETIRED) Osiel BAKER Primary Care Provider Unavailable Zechariah Paulson Unavailable [phone] Reason For Referral No Information Medications Medication [...] Problem Status W/U Status Risk Notes Problem [id number] Heme + stool (R19.5) Active confirmed Plan Of Treatment No Information Insurance Providers Payer Name Payer Address Payer Phone Subscriber Number Group Number Insured Name Patient Relationship to Insured Coverage Start Date Coverage End Date MEDICARE OF [place] [address] [place] [address] [id number] SHIVANI JordanGEOVANNY Self - patient is the insured [employer] ATT[employer] CLAIMS [address] [place] [address] [phone] [id number] GEOVANNY MONREAL Self - patient is the insured Medical (General) History Medical History History ICD Code COPD Follicular lymphoma [address] Carbajal Gout Edema HTN Denies [place],DM,CVA,renal disease Surgical History Surgery Date(Month/Year) Right hernia repair Left leg fracture
[2025-06-24 16:43] LABS: Anion Gap 13 (12-20); Blood Urea Nitrogen 12 mg/dL (9-16); Calcium 9.3 mg/dL (8.4-10.2); Carbon Dioxide 30 mmol/L (22-29); Chloride 105 mmol/L (96-108); Estimated Glomerular Filt Rate > 60; Potassium 4.0 mmol/L (3.3-5.1); Sodium 144 mmol/L (135-145)
== END 2025-06-24 13:39 | disposition home or self-care (01) ==
LOC: HO.HMGCLDS 13:38
PROVIDERS: PCP Physician Assistant Medical; Visit Provider Internal Medicine Cardiovascular Disease
DX: I50.20 Unspecified systolic (congestive) heart failure (principal)
CPT/HCPCS: 36415; 80048

== ENCOUNTER 2025-07-09 13:52 | Outpatient (AMB) | payer MEDICARE, SELFPAY ==
[2025-07-09 13:54] VITALS: PULSE 100; RESP 20; O2SAT 97; BMI 29.1
--- NOTE | 2025-07-09 13:54 | A.OFFPC_ITS ---
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 Required: No Accompanied by: Self / Same As Patient Allergies aspirin (ASA) Allergy (Mild, Verified 07/09/25 14:19) ANGIOEDEMA Iodinated Contrast Media (IV Contrast Dye) Allergy (Mild, Verified 07/09/25 14:19) gout Aspir-81 Allergy (Unknown, Uncoded 07/09/25 14:19) Unknown Medication List - Last Reconciled 07/09/25 by Brenda Powell PA-C allopurinol 300 mg PO DAILY apixaban (Eliquis) 5 mg PO BID ascorbic acid (vitamin C) 2 grams PO Q8H atorvastatin 10 mg PO BEDTIME biotin mcg PO cholecalciferol (vitamin D3) 125 mcg PO DAILY diphenhydramine HCl (Benadryl) 25 mg orally: Take 1 tablet the AM of Day before CT scan, Take 1 tablet the PM of Day before CT scan and take 1 tablet the morning of the CT scan.; famotidine (Pepcid) 20 mg orally: Take 1 tablet the AM of Day before CT scan, Take 1 tablet the PM of Day before CT scan and take 1 tablet the morning of the CT scan.; furosemide 40 mg PO BID metoprolol succinate ER 100 mg PO DAILY fcgdarpesilb-zdgicgmh-ogtrek 1 tab PO DAILY prednisone 20 mg orally: Take 1 tablet the AM of Day before CT scan, Take 1 tablet the PM of Day before CT scan and take 1 tablet the morning of the CT scan.; sacubitril-valsartan 24-26 mg (Entresto) 1 tab PO BID Tobacco use date assessed: 07/09/25 Fall risk assessment: No Falls in past year Last assessed Fall Risk: 07/09/25 Dental Screening Dental Screen Date: 07/09/25 Did you have a dental visit in the last 12 months?: No HPI establish care HPI Details The patient is a 79-year-old male presenting for a new patient appointment as he was a patient of Dr. Butts who retired. Patient presenting for the management of chronic conditions and preventative care. The patient has a history of gout, for which he is currently taking allopurinol. He also has atrial fibrillation managed with Eliquis and hyperlipidemia treated with atorvastatin. Today, the patient was diagnosed with diabetes mellitus, with an A1c of 6.6%. He was advised to start metformin to maintain glycemic control. The patient reported a subconjunctival hemorrhage, likely related to the use of Eliquis. He denies any changes in vision associated with this finding. The patient has a history of stage 4 lymphoma, which he mentioned could potentially recur. 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 - Engages in playing [employer], which has r esulted in calluses on fingers. [facility] Medical History (Updated 07/09/25 @ 14:42 by Brenda Powell PA-C) Preventative health care Subconjunctival hemorrhage Type 2 diabetes mellitus with hemoglobin A1c goal of less than 7.0% Heart failure with reduced ejection fraction HTN (hypertension) Persistent atrial fibrillation Surgical History History of surgery on lower extremity Hx of hernia repair Family History Father No problems noted. Mother No problems noted. Social History Housing: House Patient Tobacco Use Status: Current everyday Tobacco user service: No Current occupational status: retired Cognitive needs: No Hearing needs: No Vision needs: Yes (glasses) Questionnaire PHQ-9 Over the last 2 weeks, how often have you been bothered by any of the following problems? 1. Little interest or pleasure in doing things: not at all 2. Feeling down, depressed, or hopeless: not at all 3. Trouble falling or staying asleep, or sleeping too much: not at all 4. Feeling tired or having little energy: not at all 5. Poor appetite or overeating: not at all 6. Feeling bad about yourself - or that you are a failure or have let yourself or your family down: not at all 7. Trouble concentrating on things, such as reading the newspaper or watching television: not at all 8. Moving or speaking so slowly that other people could have noticed. Or the opposite - being so fidgety or restless that you have been moving around a lot more than usual: not at all 9. Thoughts that you would be better off or of hurting yourself in some way: not at all Total score: 0 Depression Screening Interpretation: Negative Depression Screening Done: Yes 34571 - PHQ-9 Billing: Yes Source: Developed by Drs. Zechariah Neal, Nida Banerjee, Aba Ewing and colleagues, with an educational yao from [employer]. Thrive Questionnaire Date Thrive assessed: 07/09/25 I am a: Patient What is your living situation today?: I have a steady place to live Within the past 12 months, did the food you bought not last and you didn't have the money to get more?: Often true Within the past 12 months, did you worry whether your food would run out before you got money to buy more?: Often true Do you have trouble paying for medicines?: No Do you have trouble getting transportation to medical appointments?: No Do you have trouble paying your heating and electricity bill?: No Do you have trouble taking care of your child, family member or friend?: No Do you have trouble with day-to-day activities such as bathing, preparing meals, shopping, managing finances, etc.?: No Are you currently unemployed and looking for a job?: No Are you interested in more education?: No THRIVE Score: 2 AUDIT C Alcohol Use Questionnaire (AUDIT-C) 1. How often do you have a drink containing alcohol?: 2-4 times a month 2. How many drinks containing alcohol do you have on a typical day when you are drinking?: 1 or 2 3. How often do you have six or more drinks on one occasion?: Never Total Score: 2 Score Reviewed/Action Taken: No NEYMAR-7 AMB Questionnaire NEYMAR-7 Date NEYMAR - 7 assessed: 07/09/25 Feeling nervous, anxious, or on edge: 0 = Not at all Not being able to stop or control worryin = Not at all Worrying too much about different things: 0 = Not at all Trouble relaxin = Not at all Being so restless that it is hard to sit still: 0 = Not at all Becoming easily annoyed or irritable: 0 = Not at all Feeling afraid as if something awful might happen: 0 = Not at all Total NEYMAR-7 score (0-4 normal; 5-9 mild; 10-14 moderate; 15-21 severe): 0 Source: Developed by Drs. Zechariah Neal, Nida Banerjee, Aba Ewing and colleagues, with an educational yao from [employer]. NEYMAR-7 Assessment Billing NEYMAR-7 Assessment Tool: NEYMAR-7 Assessment 30349 Review of Systems Const Details: - Cardiovascular: Denies chest pain or syncope. - Respiratory: Denies dyspnea or cough. - Neurological: Denies changes in vision despite subconjunctival hemorrhage. All systems reviewed & are unremarkable except as noted in HPI and below Physical exam (Primary Care) Vital Signs: Last Vital Signs Pulse 121 H 07/09/25 13:54 Resp 20 07/09/25 13:54 BP 100/66 07/09/25 13:57 Pulse Ox 97 07/09/25 13:54 Oxygen Delivery Method Room Air 07/09/25 13:54 Care Plan Goal for BP management: <140/90 at Goal BMI result Body Mass Index 29.1 BMI Assessment/Plan discussion: High BMI High, discussed plan: lifestyle, weight reduction, dietary, physical activity, alcohol moderation and other Tobacco/Smoking Status: Tobacco use Status Tobacco use date assessed 07/09/25 07/09/25 14:05 Patient Tobacco Use Status Current everyday Tobacco 07/09/25 14:05 PHQ-9: PHQ-9 Score PHQ-9: Total score 0 07/09/25 14:20 Depression Screening Interpretation: Negative Thrive Assessment: Date of Thrive Assessment Date Thrive assessed 07/09/25 07/09/25 14:05 Const Other: Appearance: Alert. Oriented X3. No acute distress. Head: Normal external exam. Normocephalic. Atraumatic. Eyes: Pupils are equal, round, and reactive to light. Extraocular movements intact. Conjunctiva and sclera normal. Eyelids normal. Subconjunctival hematoma noted in one eye. Ears: External auditory canal normal. Tympanic membranes normal. Throat: Pharynx normal. Uvula midline. Moist mucous membranes. Neck: Normal inspection. Neck supple. Full range of motion. Cardiovascular: Normal heart rate and rhythm. Heart sound normal. No murmurs noted. Pulses normal throughout. Respiratory: No respiratory distress. Painless inspiration. Breath sounds normal. No wheezes/rales/rhonchi noted. Chest nontender. No accessory muscle usage noted or decreased air movement noted. Back: Full range of motion noted. Skin: Skin warm and dry. Normal skin color. Normal skin turgor. No rashes/lesions/lacerations noted. Extremities: No lower extremity edema. Extremities exhibit normal range of motion. Neuro: Oriented X 3. Office Procedures Flu Questionnaire Does the patient have a severe egg allergy?: No Does the patient have severe life threatening allergies?: No Does the patient have a fever or illness today?: No Has the patient ever had Guillain-[place] Syndrome?: No Has the patient ever had any past reaction to a flu shot?: No Results AMB Hemoglobin A1c AMB Hemoglobin A1c 6.6 % Last Edit by Génesis Haro CMA on 07/09/25 14:3 0 Immunizations Fluarix [id number] (PF) 45 mcg (15 mcg x 3)/0.5 mL IM syringe Performing Provider: Brenda Powell PA-C [facility] Documented (not given) by: Génesis Haro CMA on 07/09/25 14:07 Reason Not Given: Patient Refused Results Reviewed Results Reviewed: - Labs: A1c 6.6%, indicating diabetes mellitus - Labs: Normal liver enzymes and cholesterol levels - Labs: Normal kidney function with GFR Coding Level of Care Code New Pt Level 4 (48696) Complex EM visit Add On G2211 Diagnoses Type 2 diabetes mellitus with hemoglobin A1c goal of less than 7.0% E11.9 Subconjunctival hemorrhage H11.30 [facility] care Z00.00 HTN (hypertension) I10 Heart failure with reduced ejection fraction I50.20 Persistent atrial fibrillation I48.19 Additional Codes PHQ-9 - 54918 - PHQ-9 Billing: Yes ([id number]) NEYMAR-7 Assessment Billing - NEYMAR-7 Assessment Tool: NEYMAR-7 Assessment 34807 ([id number]) Time Spent (min) 50 Assessment & Plan Assessment & Plan (1) Type 2 diabetes mellitus with hemoglobin A1c goal of less than 7.0%: Code(s): E11.9 - Type 2 diabetes mellitus without complications Category: Medical Plan: The patient was diagnosed with diabetes mellitus, with an A1c of 6.6%. He was advised to start metformin to maintain glycemic control and was informed about monitoring blood glucose levels, especially when feeling dizzy or lightheaded. Follow-up appointments every three months were recommended to monitor A1c levels. (2) Subconjunctival hemorrhage: Code(s): H11.30 - Conjunctival hemorrhage, unspecified eye Category: Medical Plan: The patient presented with a subconjunctival hemorrhage, likely related to the use of Eliquis. He was reassured that it typically resolves on its own and was advised to monitor for any changes in vision. (3) Preventative health care: Code(s): Z00.00 - Encounter for general adult medical examination without abnormal findings Category: Medical Plan: Preventative care measures discussed included thyroid function testing and PSA screening, which the patient initially declined but later agreed to have done during the next visit. (4) HTN (hypertension): Code(s): I10 - Essential (primary) hypertension Category: Medical Plan: Patient to continue Eliquis 5 mg daily, atorvastatin 10 mg at bedtime, furosemide 40 mg b.i.d., metoprolol extended release 100 mg daily, Entresto 1 tablet b.i.d.. Condition is chronic and stable will continue to monitor. (5) Heart failure with reduced ejection fraction: Code(s): I50.20 - Unspecified systolic (congestive) heart failure Category: Medical Plan: Patient to continue Eliquis 5 mg daily, atorvastatin 10 mg at bedtime, furosemide 40 mg b.i.d., metoprolol extended release 100 mg daily, Entresto 1 tablet b.i.d.. Condition is chronic and stable will continue to monitor. (6) Persistent atrial fibrillation: Code(s): I48.19 - Other persistent atrial fibrillation Category: Medical Plan: Patient to continue Eliquis 5 mg daily, atorvastatin 10 mg at bedtime, furosemide 40 mg b.i.d., metoprolol extended release 100 mg daily, Entresto 1 tablet b.i.d.. Condition is chronic and stable will continue to monitor. Plan Plan Patient was informed and verbally consented to the use of an ambient scribe for clinic note documentation during this visit. 1. Diabetes Mellitus The patient was diagnosed with diabetes mellitus, with an A1c of 6.6%. He was advised to start metformin to maintain glycemic control and was informed about monitoring blood glucose levels, especially when feeling dizzy or lightheaded. Follow-up appointments every three months were recommended to monitor A1c levels. 2. Subconjunctival Hemorrhage The patient presented with a subconjunctival hemorrhage, likely related to the use of Eliquis. He was reassured that it typically resolves on its own and was advised to monitor for any changes in vision. 3. Preventative Care Preventative care measures discussed included thyroid function testing and PSA screening, which the patient initially declined but later agreed to have done during the next visit. During the visit, I discussed the patient's new diagnosis of diabetes mellitus and recommended starting metformin to manage blood glucose levels. I explained the importance of monitoring blood sugar, especially when experiencing symptoms like dizziness or fatigue. We also reviewed the patient's current medications and addressed the subconjunctival hemorrhage, reassuring him of its benign nature. Preventative care measures, including thyroid function and PSA screening, were discussed, and the patient agreed to have these tests during the next visit. Orders: Orders Influenza [id number] Immunization Today Z23 - Encounter for immunization AMB Hemoglobin A1c Today Z13.9 - Encounter for screening, unspecified TSH reflex Free T4 Today Z00.00 - Encounter for general adult medical examination without abnormal findings PSA,Total (Free>4and<10) Today Z00.00 - Encounter for general adult medical examination without abnormal findings Vitamin D 25-OH Total Today Z00.00 - Encounter for general adult medical examination without abnormal findings Vitamin B12 and Folate Today Z00.00 - Encounter for general adult medical examination without abnormal findings Medications: New blood-glucose meter (FreeStyle Lite Meter kit) Check glucose 3 times a day with meals 1 ea 3RF E11.9 - Type 2 diabetes mellitus without complications metformin 500 mg PO DAILY 90 tabs 3RF 90 days E11.9 - Type 2 diabetes mellitus without complications blood sugar diagnostic (FreeStyle Lite Strips) Check glucose 3 times a day with meals 100 ea 1RF E11.9 - Type 2 diabetes mellitus without complications alcohol swabs (Alcohol Pads) 1 pad topical TIDWMEAL 100 ea 1RF E11.9 - Type 2 diabetes mellitus without complications Patient Instructions: - Start taking metformin as prescribed to manage blood sugar levels. - Monitor blood sugar levels, especially if feeling dizzy or lightheaded. - Schedule follow-up appointments every three months to check A1c levels. - Monitor for any changes in vision related to the subconjunctival hemorrhage. - Plan to have thyroid function and PSA tests during the next visit.
[2025-07-09 13:57] VITALS: BP 100/66
--- OUTSIDE RECORDS SUMMARY | 2025-07-09 17:04 | XMS_ITS | Patient Health Record ---
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 Name Role Phone Benjamín (RETIRED) Osiel BAKER Primary Care Provider Unavailable Zechariah Paulson Unavailable [phone] Reason For Referral No Information Medications Medication [...] Problem Status W/U Status Risk Notes Problem [id number] Heme + stool (R19.5) Active confirmed Plan Of Treatment No Information Insurance Providers Payer Name Payer Address Payer Phone Subscriber Number Group Number Insured Name Patient Relationship to Insured Coverage Start Date Coverage End Date MEDICARE OF [place] [address] [place] [address] [phone] [id number] SHIVANI JordanGEOVANNY Self - patient is the insured MEDEX ATTN CLAIMS [address] [place] [address] [id number] GEOVANNY MONREAL Self - patient is the insured Medical (General) History Medical History History ICD Code COPD Follicular lymphoma 2007 treated with [address] emo Dr. Carbajal Gout Edema HTN Denies W[place],DM,CVA,renal disease Surgical History Surgery Date(Month/Year) Right hernia repair Left leg fracture
== END 2025-07-09 14:35 | disposition home or self-care (01) ==
LOC: HO.HMCSH 13:52
PROVIDERS: PCP Physician Assistant Medical; Visit Provider Physician Assistant Medical
DX: E11.9 Type 2 diabetes mellitus without complications (principal); H11.30 Conjunctival hemorrhage, unspecified eye; Z00.00 Encounter for general adult medical examination without abnormal findings; I10 Essential (primary) hypertension; I50.20 Unspecified systolic (congestive) heart failure; I48.19 Other persistent atrial fibrillation; Z23 Encounter for immunization; Z13.9 Encounter for screening, unspecified

== ENCOUNTER → 2025-07-09 13:52 | Outpatient (BNVA) | payer MEDICARE, SELFPAY | PROVIDERS: PCP Physician Assistant Medical; Visit Provider Physician Assistant Medical | DX: Z00.00 Encounter for general adult medical examination without abnormal findings (principal); E11.9 Type 2 diabetes mellitus without complications; H11.30 Conjunctival hemorrhage, unspecified eye; I48.91 Unspecified atrial fibrillation; I11.0 Hypertensive heart disease with heart failure; I50.20 Unspecified systolic (congestive) heart failure; I48.19 Other persistent atrial fibrillation; E78.5 Hyperlipidemia, unspecified; Z79.01 Long term (current) use of anticoagulants; Z79.899 Other long term (current) drug therapy; Z28.21 Immunization not carried out because of patient refusal | CPT/HCPCS: 83036; 90471; 96127; 99202 ==

== ENCOUNTER → 2025-07-31 13:52 | Outpatient (REF) | payer MEDICARE, SELFPAY ==
--- NOTE | 2025-07-31 13:57 | CA_ITS ---
Transthoracic Echocardiogram Patient (Last, First, Middle): Andrew Orlando R Gender: M Date of : 1945 Age: 79 Procedure Date: 07/31/2025 Procedure Type: Transthoracic Echocardiogram Location: OP Height: 180.34 cm Weight: 94.8 kg BSA: 2.15 m2 Heart Rate: bpm BP: 100 / 66 mmHg Coffee Weigher: GOLD Referring MD: Horacio Rahman MD Rolloff Driver: Horacio Rahman MD Symptoms: I50.20 - Unspecified systolic (congestive) heart failure Study Quality: Fair, contrast ECG Rhythm: Atrial Fibrillation Conclusions: - 1. Technically limited study 2. Severely reduced LV ejection fraction of 20-25% 3. At least moderately dilated left atrium 4. Calcific aortic and mitral valve changes noted with limited visualization of cardiac valves with normal cardiac valvular Dopplers 5. Normal RV systolic pressure 6. Mildly dilated ascending aorta at 3.9 cm 7. No gross pericardial effusion Findings Procedure Information Contrast agent, definity, is being given per protocol without apparent complications. Left Ventricle Normal left ventricular cavity size. There is normal left ventricular wall thickness. The left ventricular systolic function is severely decreased. The visually estimated ejection fraction is between 20-25%. Diastolic function is indeterminate on the basis of available data. Right Ventricle The right ventricle was not well visualized. Atria The left atrium is moderately dilated. Interatrial shunt cannot be excluded. The right atrium was not well visualized. Aortic Valve The aortic valve was not well visualized. There is mild calcification of the aortic valve. There is no aortic valve stenosis. There is no aortic valve regurgitation. Mitral Valve The mitral valve was not well visualized. There is mild anterior mitral leaflet thickening. There is moderate mitral annular calcification. There is trace mitral valve regurgitation. There is no mitral valve stenosis. Pulmonic Valve The pulmonic valve was not well visualized. Tricuspid Valve Likely normal tricuspid valve structure and function. There is mild tricuspid valve regurgitation. The right ventricular systolic pressure is normal. The right ventricular systolic pressure is 32 mmHg. Normal right atrial pressure. There is no evidence of pulmonary hypertension. Great Vessels The aorta was not well visualized. The pulmonary artery was not well visualized. There is mild dilatation of the ascending aorta measuring 3.90 cm. Venous The inferior vena cava is normal in size and collapses greater than 50% with inspiration. Pericardium/Pleural The pericardium was not well visualized. Prior Study Comparison No significant change compared to prior study dated: 05/10/2024. Measurements 2D Linear Measurements IVSd: 1.19 0.6-0.9/0.6-1.0 cm LVIDd: 4.75 3.9-5.3/4.2-5.9 cm LVIDd Index: 2.21 2.4-3.2/2.2-3.1 cm/m2 LVIDs: 3.77 2.0-3.6 cm LVPWd: 1.09 0.7-1.1 cm LA Diam: 4.90 2.7-3.8/3.0-4.0 cm LAIDs Index: 2.28 1.5-2.3 cm/m2 LV Mass: 249.87 67-162/88-224 g LV Mass Index: 116.22 43-95/49-115 g/m2 LVOT Diam: 2.50 3.0+(-)1.3 cm 2D Systolic Function EF 4C: 33.20 >55% EF 2C: 16.20 >55% EF BiP: 23.90 >55% Mitral Valve MV Pk E: 0.66 MV Decel Time: 198.00 E'Lateral: 9.52 E'Medial: 5.44 E/E' Med: 12.20 E/E' Lat: 7.00 PHT: 58.00 MVA PHT: 3.79 Decel [place]: 3.66 Aortic Valve AoV Pk Vitaliy: 1.23 AoV Mn Vitaliy: 0.84 AoV VTI: 0.19 AoV Pk Grad: 6.00 Aov Mn Grad: 3.00 JODI Cont.VTI: 2.72 LVOT LVOT Pk Vitaliy: 0.71 LVOT Mn Vitaliy: 0.47 LVOT VTI: 0.11 LVOT Pk Grad: 2.00 LVOT Mn Grad: 1.00 LVOT Diam: 2.50 LVOT Area: 4.91 Diastolic Function MV Pk E: 0.66 E'Medial: 5.44 E/E' Med: 12.20 E' Laterial: 9.52 E/E' Lat: 7.00 Right Ventricle TAPSE (mm): 9.49 TVS' Vitaliy: 6.36 Tricuspid Valve TR Pk Vitaliy: 2.69 TR Pk Grad: 29.00 RA Press: 3.00 RVSP: 32.00 Great Vessels Aorta Sinus of Valsalva: 3.50 2.0-3.5 cm Ao Asc: 3.90 2.1-3.4 cm Updated in Other Vendor System with Status of Final Horacio Rahman MD electronically signed on 08/01/2025 12:31:13 PM with status of Final
[2025-07-31 15:11] LABS: PSA,Total (Free>4and<10) 0.98 ng/mL (0.00-4.00)
[2025-07-31 15:24] LABS: Folate 14.7 ng/mL (> or = 4.0); Vitamin B12 784 pg/mL (200-900)
--- OUTSIDE RECORDS SUMMARY | 2025-07-31 17:38 | XMS_ITS | Patient Health Record ---
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 Name Role Phone Benjamín (RETIRED) Osiel BAKER Primary Care Provider Unavailable Zechariah Paulson Unavailable [phone] Reason For Referral No Information Medications Medication SIG (Take, Route, Frequency, Duration) Notes Start Date End Date Status Furosemide 40 MG TAKE 1 TABLET BY ILYA TH TWICE A DAY Oral; Duration: 90 Active Allopurinol 300 MG TAKE 1 TABLET BY ILYA TH EVERY DAY Oral; Duration: 90 Active Metoprolol Tartrate 50 MG TAKE 1 TABLET BY MOUTH EVERY DAY Oral; Duration: 90 Active Atorvastatin Calcium 10 MG TAKE 1 TABLET BY MOUTH EVERY DAY Oral; Duration: 90 Active Immunizations Vaccine Route Administration Date [...] Problem Status W/U Status Risk Notes Problem Abnormal feces ([id number]) Heme + stool (R19.5) Active confirmed Plan Of Treatment No Information Insurance Providers Payer Name Payer Address Payer Phone Subscriber Number Group Number Insured Name Patient Relationship to Insured Coverage Start Date Coverage End Date MEDICARE OF [place] [address] [place] [id number] GEOVANNY MONREAL Self - patient is the insured MEDEX ATTN CLAIMS [address] [place] [address] [phone] [id number] GEOVANNY MONREAL Self - patient is the insured Medical (General) History Medical History History ICD Code COPD Follicular lymphoma [address] treated with ch emo Dr. Carbajal Gout Edema HTN Denies W[place],DM,CVA,renal disease Surgical History Surgery Date(Month/Year) Right hernia repair Left leg fracture
== END ==
LOC: HO.CARD 13:52
PROVIDERS: PCP Physician Assistant Medical; Visit Provider Internal Medicine Cardiovascular Disease
DX: Z00.00 Encounter for general adult medical examination without abnormal findings (principal); I50.20 Unspecified systolic (congestive) heart failure; Z12.5 Encounter for screening for malignant neoplasm of prostate
CPT/HCPCS: 36415; 82306; 82607; 82746; 84153; 84443; 93306; Q9957

== ENCOUNTER → 2025-07-31 13:57 | Outpatient (BNV) | payer MEDICARE, SELFPAY | PROVIDERS: PCP Physician Assistant Medical; Visit Provider Internal Medicine Cardiovascular Disease | DX: I51.7 Cardiomegaly (principal); I35.8 Other nonrheumatic aortic valve disorders; I34.81 Nonrheumatic mitral (valve) annulus calcification; I77.810 Thoracic aortic ectasia | CPT/HCPCS: 93306 ==

== ENCOUNTER 2025-09-09 14:53 | Outpatient (AMB) | payer MEDICARE, SELFPAY ==
[2025-09-09 14:57] VITALS: BP 118/82; PULSE 95; BMI 28.9
--- NOTE | 2025-09-09 14:57 | A.OFFVIS_ITS ---
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: No Allergies aspirin (ASA) Allergy (Mild, Verified 09/09/25 15:00) ANGIOEDEMA Iodinated Contrast Media (IV Contrast Dye) Allergy (Mild, Verified 09/09/25 15:00) gout Aspir-81 Allergy (Unknown, Uncoded 09/09/25 15:00) Unknown Medication List - Last Reconciled 09/09/25 by MONIE Orozco alcohol swabs 1 pad topical TID allopurinol 300 mg PO DAILY apixaban (Eliquis) 5 mg PO BID ascorbic acid (vitamin C) 2 grams PO Q8H atorvastatin 10 mg PO BEDTIME biotin mcg PO blood sugar diagnostic (FreeStyle Lite Strips) 1 strip miscellaneous TID blood-glucose meter (FreeStyle Lite Meter kit) Check glucose 3 times a day with meals blood-glucose meter check glucose TID with meals cholecalciferol (vitamin D3) 125 mcg PO DAILY furosemide 40 mg PO BID metformin 500 mg PO DAILY 90 days metoprolol succinate ER 100 mg PO DAILY yzayqpfhuvik-pkezjqhh-sdrklo 1 tab PO DAILY sacubitril-valsartan 24-26 mg (Entresto) 1 tab PO BID HPI HPI 3 mth fu echo/ labs/ CTA (NS): Details: The patient is a 79-year-old individual presenting for follow-up of cardiomyopathy, atrial fibrillation and heart failure with reduced ejection fraction. The patient also has a history of hypertension, and the last visit was on 06/10/2025. The patient has persistent atrial fibrillation managed with rate control and Eliquis for anticoagulation. The patient's heart failure with reduced ejection fraction was noted to be 15-20% on 05/10/2024, and a more recent echocardiogram on 07/31/2025 showed an EF of 20-25%. The recent echo also revealed a moderately dilated left atrium, calcific changes of the aortic and mitral valves with normal dopplers, and an ascending aorta measuring 3.9 cm. A pharmacological nuclear stress test on 06/22/2024 showed mild ischemia in the mid to distal LAD territory. A coronary CT scan on 08/14/2025 demonstrated non- obstructive coronary artery disease, and FFR confirmed no hemodynamically significant stenosis. Functionally, the patient denies shortness of breath at rest or when lying down, can manage stairs, and performs some yard work. However, activity is limited by back pain. No chest discomfort at rest or with exertion. The patient reports new symptoms since starting Entresto, including worsening neuropathy, increased fluid retention, gastric upset, constipation, back pain, and dental issues with loose teeth. I informed him the symptoms are not likely to all be related to Entresto use. He is willing to continue Entresto at this time. The patient's current medications include Eliquis, atorvastatin, Lasix, metoprolol, and Entresto. [facility] Medical History Preventative health care Subconjunctival hemorrhage Type 2 diabetes mellitus with hemoglobin A1c goal of less than 7.0% Heart failure with reduced ejection fraction HTN (hypertension) Persistent atrial fibrillation Surgical History History of surgery on lower extremity Hx of hernia repair Family History Father No problems noted. Mother No problems noted. Social History Housing: House Patient Tobacco Use Status: Current everyday Tobacco user service: No Current occupational status: retired Cognitive needs: No Hearing needs: No Vision needs: Yes (glasses) Review of Systems Const All systems reviewed & are unremarkable except as noted in HPI and below ENT Denies dizziness Card Denies chest pain, Denies chest pain at rest, Denies chest pain with activity, Denies rapid heart rate, Denies pedal edema, Denies edema, Denies leg edema, Denies lightheadedness, Denies palpitations, Denies dyspnea, Denies dyspnea on exertion and Denies orthopnea Resp Denies cough, Denies dyspnea and Denies dyspnea on exertion GI Denies hematochezia and Denies change in stool character Musc Denies abnormal gait, Denies limited range of motion, Denies muscle cramps, Denies muscle weakness, Denies numbness, Denies radiating pain into limb, Denies stiffness and Denies tingling Neuro Denies abnormal gait, Denies dizziness, Denies numbness and Denies tingling Endo Denies palpitations Physical Exam Vital Signs: Last Vital Signs Pulse 95 09/09/25 14:57 BP 118/82 09/09/25 14:57 BMI result Body Mass Index 28.9 Const General: cooperative, healthy appearing, comfortable and no acute distress Orientation/consciousness: patient oriented x3 Neck Neck: Yes normal visual inspection Resp Effort & Inspection: normal respiratory effort Auscultation: clear to auscultation bilaterally, no crackles, no rales, no rhonchi and no wheezes Cardio Rate: regular rate Rhythm: regular rhythm Heart sounds: S1 normal heart sound present, S2 normal heart sound present, no g allops, no murmurs and no rubs Peripheral pulses: Peripheral pulses 2+ throughout Neuro General: patient oriented x3 Extrem General: Yes normal to inspection, No no pedal edema and No calf tenderness Psych Appearance: grossly normal Mental Status: mental status grossly normal Speech and movement: Normal speech and movement present Assessment & Plan Assessment & Plan (1) Cardiomyopathy: Code(s): I42.9 - Cardiomyopathy, unspecified Category: Medical Plan: Nonischemic cardiomyopathy with echocardiogram 05/10/2024 showing EF 15-20%. A pharmacological nuclear stress test done 06/22/2024 showed mild ischemia in the mid to distal LAD territory. He recently underwent a CTA of the coronary arteries on 08/14/2025 showing mild nonobstructive three-vessel coronary artery disease. A repeat echocardiogram showed EF 20-25%. He is not fluid overloaded on exam. Continue metoprolol XL and Entresto for neurohormonal modulation, continue Lasix for fluid management. I discussed ICD, reviewing the need and risk of arrhythmia and potential sudden cardiac with him, and he declines at this time. Checking Holter as below to see if his rate is controlled. Cardiology follow-up in 3-4 months to again review condition and discuss ICD. (2) Persistent atrial fibrillation: Code(s): I48.19 - Other persistent atrial fibrillation Category: Medical Plan: Atrial fibrillation, now persistent and being treated with heart rate control using metoprolol succinate 100 mg daily. He is denying heart palpitations. EF remains low. Will check a Holter to ensure he has good heart rate control. Labs 04/15/2025 showed hematocrit 46, creatinine 1.17. He is on Eliquis for anticoagulation. No bleeding issues reported. Given biannual CBC and BMP. No med changes made (3) Heart failure with reduced ejection fraction: Code(s): I50.20 - Unspecified systolic (congestive) heart failure Category: Medical Plan: History of heart failure with reduced EF. Stable at present. Continue Lasix 40 mg b.i.d.. (4) Coronary arteriosclerosis: Comment: Coronary CTA Scan (08/14/2025): Non-obstructive coronary artery disease; left main <25% stenosis, mid/distal LAD 25-49% stenosis, proximal circumflex and OM1 25-49% stenosis, RCA >40% distally. Code(s): I25.10 - Atherosclerotic heart disease of alutiiq coronary artery without angina pectoris Category: Medical Plan: As above. He is not on aspirin due to allergy. He is on Eliquis. Continue metoprolol. Continue atorvastatin. (5) HTN (hypertension): Code(s): I10 - Essential (primary) hypertension Category: Medical Plan: Blood pressure goal less than 130/80. Well controlled at present. No med changes made. Plan I explained to the patient that the coronary artery disease found on the recent CT scan is mild and is not the cause of the heart weakness. I reviewed that the heart's pumping function remains significantly weak at 20-25%, which places the patient at a higher risk for dangerous ventricular heart rhythms and sudden cardiac . I introduced the option of an implantable cardioverter-defibrillator (ICD) as a protective measure to treat such rhythms, explaining that it is similar to a pacemaker. The patient stated that the patient is not overly interested in pursuing an ICD at this time. I recommended the patient discuss it with the patient's brother, who reportedly has a device. We agreed to first investigate if the atrial fibrillation rate is well- controlled, as poor control can contribute to a weak heart. I ordered a 3-day Holter monitor, and the patient agreed to this plan. I explained that I cannot adjust the heart medications further due to the patient's low-normal blood pressure. I will communicate our discussion with Dr. Rahman and arranged a follow-up visit in 3-4 months. Orders: Orders ECG 3 day holter monitor Today I48.19 - Other persistent atrial fibrillation Patient Instructions: - Continue taking all your medications as prescribed, including Eliquis, atorvastatin, Lasix, metoprolol, and Entresto. - We have ordered a Holter monitor to check your heart rhythm for 3 days. It is a sticker that goes on your chest. - Our scheduling department will call you to set up an appointment to have the monitor placed. - After the monitoring period, you will need to mail the device back in a provided envelope. - You might consider talking with your brother about his experience with a defibrillator. - You have a follow-up appointment scheduled with Dr. Rahman in 3-4 months. Patient was informed and verbally consented to the use of an ambient scribe for clinic note documentation during this visit. Visit time spent on chart review, interview, assessment, orders, documentation. Coding Level of Care Code Complex visit Add On G2211 Diagnoses Cardiomyopathy I42.9 Persistent atrial fibrillation I48.19 Heart failure with reduced ejection fraction I50.20 Coronary arteriosclerosis I25.10 HTN (hypertension) I10 Time Spent (min) 30
== END 2025-09-09 15:44 | disposition home or self-care (01) ==
LOC: HO.HCS 14:54
PROVIDERS: PCP Internal Medicine; Visit Provider Nurse Practitioner Family
DX: I42.9 Cardiomyopathy, unspecified (principal); I48.19 Other persistent atrial fibrillation; I50.20 Unspecified systolic (congestive) heart failure; I25.10 Atherosclerotic heart disease of native coronary artery without angina pectoris; I10 Essential (primary) hypertension
CPT/HCPCS: 99214; G2211

== ENCOUNTER → 2025-09-09 14:53 | Outpatient (BNVA) | payer MEDICARE, SELFPAY | PROVIDERS: PCP Internal Medicine; Visit Provider Nurse Practitioner Family | DX: I11.0 Hypertensive heart disease with heart failure (principal); I50.22 Chronic systolic (congestive) heart failure; Z72.0 Tobacco use; I48.19 Other persistent atrial fibrillation; Z79.01 Long term (current) use of anticoagulants; I42.9 Cardiomyopathy, unspecified | CPT/HCPCS: 99212 ==

== ENCOUNTER → 2025-10-02 12:37 | Outpatient (REF) | payer MEDICARE, SELFPAY ==
--- OUTSIDE RECORDS SUMMARY | 2025-10-02 16:47 | XMS_ITS | Patient Health Record ---
Author Organization [facility] Address [address] [place] [id number] Care Team Providers Care Information Technology Consultant Name Role Phone Benjamín (RETIRED) Osiel BAKER Primary Care Provider Unavailable Zechariah Paulson Unavailable [phone] Reason For Referral No Information Medications Medication SIG (Take, Route, Frequency, Duration) Notes Start Date End Date Status Furosemide 40 MG Tablet TAKE 1 TABLET BY MOUTH TWICE A DAY Oral; Duration: 90 Active Allopurinol 300 MG Tablet TAKE 1 TABLET BY MOUTH EVERY DAY Oral; Duration: 90 Active Metoprolol Tartrate 50 MG Tablet TAKE 1 TABLET BY MOUTH EVERY DAY Oral; Duration: 90 Active Atorvastatin Calcium 10 MG Tablet TAKE 1 TABLET BY MOUTH EVERY DAY Oral; Duration: 90 Active Immunizations Vaccine Route Administration Date Status Comme nts Influenza Unknown 10/13/2022 Refused Social History Tobacco Use: Social History Observation Description Date Details (start date - stop date) Current Smoker NA - NA Social History Drugs/Alcohol: Social Info Question Answer Notes Alcohol Screen Did you have a drink containing alcohol in the past year? Yes How often did you have a drink containing alcohol in the past year? 2 to 4 times a month (2 points) How many drinks did you have on a typical day when you were drinking in the past year? 1 or 2 drinks (0 point) How often did you have 6 or more drinks on one occasion in the past year? 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 Section Notes: Smokes 7-8 cigs QD; no sig a lcohol Problems Problem Type SNOMED Code ICD Code Onset Dates Problem Status W/U Status Risk Notes Problem Abnormal feces (440447014) Heme + stool (R19.5) Active confirmed Plan Of Treatment No Information Insurance Providers Payer Name Payer Address Payer Phone Subscriber Number Group Number Insured Name Patient Relationship to Insured Coverage Start Date Coverage End Date MEDICARE OF [place] [address] [place] [address] [id number] ELISEOELIZABETH Jordan GEOVANNY Self - patient is the insured [employer] ATT[employer] CLAIMS [address] [place] [address] [phone] [id number] GEOVANNY MONREAL Self - patient is the insured Medical (General) History Medical History History ICD Code COPD 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
== END ==
LOC: HO.CARD 12:37
PROVIDERS: PCP Physician Assistant Medical; Visit Provider Nurse Practitioner Family
DX: I48.19 Other persistent atrial fibrillation (principal)
CPT/HCPCS: 93242

== ENCOUNTER → 2025-10-02 12:40 | Outpatient (BNV) | payer MEDICARE, SELFPAY | PROVIDERS: PCP Physician Assistant Medical; Visit Provider Internal Medicine | DX: I49.3 Ventricular premature depolarization (principal) | CPT/HCPCS: 93244 ==

== ENCOUNTER 2025-10-03 13:02 | Outpatient (AMB) | payer MEDICARE, SELFPAY ==
[2025-10-03 13:01] VITALS: BP 106/64; PULSE 94; RESP 14; TEMP 36.4; O2SAT 98; BMI 29.8
--- NOTE | 2025-10-03 13:01 | MHC.PC.OV ---
Vital Signs 10/03/25 13:01 Height 5 ft 11 in Weight 214 lb BMI 29.8 BP 106/64 Blood Pressure Location Lt brachial Position Sitting Respiration 14 Pulse 94 Pulse Source Pulse Oximeter Temp 97.6 F Temp Source Temporal Artery Scan Pulse Oximetry (%) 98 Oxygen Delivery Method Room Air Intake Visit Reasons: 3 month follow up Physiotherapy Aide Required: No Accompanied by: Self / Same As Patient Allergies aspirin (ASA) Allergy (Mild, Verified 10/03/25 13:34) ANGIOEDEMA Iodinated Contrast Media (IV Contrast Dye) Allergy (Mild, Verified 10/03/25 13:34) gout Aspir-81 Allergy (Unknown, Uncoded 10/03/25 13:34) Unknown Medication List - Last Reconciled 10/03/25 by Brenda Powell PA-C alcohol swabs 1 pad topical TID allopurinol 300 mg PO DAILY apixaban (Eliquis) 5 mg PO BID 90 days ascorbic acid (vitamin C) 2 grams PO Q8H atorvastatin 10 mg PO BEDTIME biotin mcg PO blood sugar diagnostic (FreeStyle Lite Strips) 1 strip miscellaneous TID blood-glucose meter (FreeStyle Lite Meter kit) Check glucose 3 times a day with meals blood-glucose meter check glucose TID with meals cholecalciferol (vitamin D3) 125 mcg PO DAILY furosemide 40 mg PO BID metformin 500 mg PO DAILY 90 days metoprolol succinate ER 100 mg PO DAILY qgimhbycvoyl-ryhiglky-brzotx 1 tab PO DAILY sacubitril-valsartan 24-26 mg (Entresto) 1 tab PO BID Tobacco use date assessed: 07/09/25 Dental Screening Dental Screen Date: 07/09/25 HPI HPI Comments History of Present Illness Details History of Present Illness The patient is a 79 year old male presenting for a three-month follow-up for management of his chronic conditions. His type 2 diabetes is well-controlled, with a recent HbA1c of 6.0, an improvement from 6.6 in June. He is on metformin 500 mg once daily and denies gastrointestinal side effects from this medication. The patient has a significant cardiac history including cardiomyopathy, persistent atrial fibrillation, hypertension, and heart failure with reduced ejection fraction (HFrEF). His ejection fraction was noted to be 15-20% on 05/10/2024 and improved slightly to 20-25% on a recent echocardiogram from 07/31/2025. The recent echocardiogram also revealed a moderately dilated left atrium and calcification of the aortic and mitral valves. A nuclear stress test from 07/02/2024 showed mild ischemia in the LAD territory, and a coronary CT from 08/14/2025 demonstrated nonobstructive coronary artery disease. Functionally, he denies shortness of breath at rest but does experience it with overexertion. His activity is limited by back pain. The patient reports several symptoms he attributes to starting Entresto, including upset stomach, constipation, increased foot swelling, worsening neuropathy, and low back pain. His financial quantitative analyst recently discussed the placement of an implantable cardioverter-defibrillator (ICD) due to the risk of ventricular arrhythmias from his low ejection fraction, but he has declined this intervention. He is currently wearing a Holter monitor ordered by cardiology to assess his heart rate control. He has a loose dental cap but is concerned about seeing a dentist as he was told he would need to stop taking Eliquis. Social History - Functional Status: The patient reports being able to manage stairs and perform some yard work, though his activity is limited by back pain. [facility] Medical History (Updated 10/03/25 @ 13:36 by Brenda Powell PA-C) Healthcare maintenance Preventative health care Subconjunctival hemorrhage Type 2 diabetes mellitus with hemoglobin A1c goal of less than 7.0% Heart failure with reduced ejection fraction HTN (hypertension) Persistent atrial fibrillation Surgical History History of surgery on lower extremity Hx of hernia repair Family History Father No problems noted. Mother No problems noted. Social History Housing: House Patient Tobacco Use Status: Current everyday Tobacco user service: No Current occupational status: retired Cognitive needs: No Hearing needs: No Vision needs: Yes (glasses) Questionnaire PHQ-9 Over the last 2 weeks, how often have you been bothered by any of the following problems? 1. Little interest or pleasure in doing things: not at all 2. Feeling down, depressed, or hopeless: not at all 3. Trouble falling or staying asleep, or sleeping too much: not at all 4. Feeling tired or having little energy: not at all 5. Poor appetite or overeating: not at all 6. Feeling bad about yourself - or that you are a failure or have let yourself or your family down: not at all 7. Trouble concentrating on things, such as reading the newspaper or watching television: not at all 8. Moving or speaking so slowly that other people could have noticed. Or the opposite - being so fidgety or restless that you have been moving around a lot more than usual: not at all 9. Thoughts that you would be better off or of hurting yourself in some way: not at all Total score: 0 Depression Screening Interpretation: Negative Depression Screening Done: Yes 85875 - PHQ-9 Billing: Yes Source: Developed by Drs. Zechariah Neal, Nida Banerjee, Aba Ewing and colleagues, with an educational yao from [employer]. Thrive Questionnaire Date Thrive assessed: 07/09/25 I am a: Patient What is your living situation today?: I have a steady place to live Within the past 12 months, did the food you bought not last and you didn't have the money to get more?: Often true Within the past 12 months, did you worry whether your food would run out before you got money to buy more?: Often true Do you have trouble paying for medicines?: No Do you have trouble getting transportation to medical appointments?: No Do you have trouble paying your heating and electricity bill?: No Do you have trouble taking care of your child, family member or friend?: No Do you have trouble with day-to-day activities such as bathing, preparing meals, shopping, managing finances, etc.?: No Are you currently unemployed and looking for a job?: No Are you interested in more education?: No THRIVE Score: 2 AUDIT C Alcohol Use Questionnaire (AUDIT-C) 1. How often do you have a drink containing alcohol?: 2-4 times a month 2. How many drinks containing alcohol do you have on a typical day when you are drinking?: 1 or 2 3. How often do you have six or more drinks on one occasion?: Never Total Score: 2 Score Reviewed/Action Taken: No NEYMAR-7 AMB Questionnaire NEYMAR-7 Date NEYMAR - 7 assessed: 07/09/25 Feeling nervous, anxious, or on edge: 0 = Not at all Not being able to stop or control worryin = Not at all Worrying too much about different things: 0 = Not at all Trouble relaxin = Not at all Being so restless that it is hard to sit still: 0 = Not at all Becoming easily annoyed or irritable: 0 = Not at all Feeling afraid as if something awful might happen: 0 = Not at all Total NEYMAR-7 score (0-4 normal; 5-9 mild; 10-14 moderate; 15-21 severe): 0 Source: Developed by Drs. Zechariah Neal, Nida Banerjee, Aba Ewing and colleagues, with an educational yao from [employer]. NEYMAR-7 Assessment Billing NEYMAR-7 Assessment Tool: NEYMAR-7 Assessment 23397 Review of Systems Narrative Review of Systems - Cardiovascular: Denies chest pain or discomfort at rest or with exertion. - Respiratory: Reports dyspnea on overexertion. - Gastrointestinal: Reports upset stomach and constipation, which he attributes to Entresto. - Musculoskeletal: Reports low back pain, which limits his activity. - Neurological: Reports increased peripheral neuropathy. - Extremities: Reports increased pedal edema. - Dental: Reports a loose tooth cap. Const All systems reviewed & are unremarkable except as noted in HPI and below Physical exam (Primary Care) Vital Signs: Last Vital Signs Temp 97.6 F 10/03/25 13:01 Pulse 94 10/03/25 13:01 Resp 14 10/03/25 13:01 BP 106/64 10/03/25 13:01 Pulse Ox 98 10/03/25 13:01 Oxygen Delivery Method Room Air 10/03/25 13:01 Care Plan Goal for BP management: <140/90 at Goal BMI result Body Mass Index 29.8 BMI Assessment/Plan discussion: High BMI High, discussed plan: lifestyle, weight reduction, dietary, physical activity, alcohol moderation and other Tobacco/Smoking Status: Tobacco use Status Tobacco use date assessed 07/09/25 10/03/25 13:03 Patient Tobacco Use Status Current everyday Tobacco 10/03/25 13:03 PHQ-9: PHQ-9 Score PHQ-9: Total score 0 10/03/25 13:16 Depression Screening Interpretation: Negative Thrive Assessment: Date of Thrive Assessment Date Thrive assessed 07/09/25 10/03/25 13:03 Narrative Physical Exam Appearance: Alert. Oriented X3. No acute distress. Head: Normal external exam. Normocephalic. Atraumatic. Eyes: Pupils are equal, round, and reactive to light. Extraocular movements intact. Conjunctiva and sclera normal. Eyelids normal. Throat: Pharynx normal. Uvula midline. Moist mucous membranes. Neck: Normal inspection. Neck supple. Full range of motion. Cardiovascular: Normal heart rate and rhythm. Respiratory: No respiratory distress. Painless inspiration. Back: Full range of motion noted. Reports increased low back pain. Skin: Skin warm and dry. Normal skin color. Normal skin turgor. No rashes/lesions/lacerations noted. Extremities: Extremities exhibit normal range of motion. Results AMB Hemoglobin A1c AMB Hemoglobin A1c 6.0 % Last Edit by JACK Santos on 10/03/25 13:17 Results Reviewed Results Reviewed: Laboratory Last Values Hgb A1c (Clinic) 6.0 % (4.0-6.0) 10/03/25 13:15 Results - Laboratory: HbA1c today is 6.0%, improved from 6.6% in June. - Echocardiogram (07/31/2025): Showed an ejection fraction of 20-25%, a moderately dilated left atrium, all calcification changes of the aortic and mitral valves with normal dopplers, and an ascending aorta measuring 3.9 cm. - Pharmacological Nuclear Stress Test (07/02/2024): Revealed mild ischemia in the mid to distal LAD territory. - Coronary CT (08/14/2025): Demonstrated nonobstructive coronary artery disease with FFR confirming no hemodynamically significant stenosis. Coding Level of Care Code Est Pt Level 4 (70392) Add On Problem Visit Only Diagnoses Type 2 diabetes mellitus with hemoglobin A1c goal of less than 7.0% E11.9 Heart failure with reduced ejection fraction I50.20 Persistent atrial fibrillation I48.19 Healthcare maintenance Z00.00 Additional Codes NEYMAR-7 Assessment Billing - NEYMAR-7 Assessment Tool: NEYMAR-7 Assessment 09067 ([id number]) PHQ-9 - 26742 - PHQ-9 Billing: Yes ([id number]) Time Spent (min) 60 Assessment & Plan Assessment & Plan (1) Type 2 diabetes mellitus with hemoglobin A1c goal of less than 7.0%: Code(s): E11.9 - Type 2 diabetes mellitus without complications Category: Medical Plan: The patient's diabetes is well-controlled with a recent HbA1c of 6.0, which is an improvement from his prior level of 6.6. He will continue metformin 500 mg once daily, which he tolerates well. His follow-up interval will be extended to 6 months, and if his control remains good, a dose reduction may be considered at that time. (2) Heart failure with reduced ejection fraction: Code(s): I50.20 - Unspecified systolic (congestive) heart failure Category: Medical Plan: The patient has stable HFrEF with an ejection fraction of 20-25%. Despite his concerns about side effects, he has agreed to continue Entresto for neurohormonal modulation. He will also continue metoprolol and furosemide for fluid management. He has declined the financial quantitative analyst's recommendation for an implantable cardioverter-defibrillator (ICD) at this time, despite counseling on the risks of arrhythmia and sudden cardiac . He will follow up with cardiology in 3-4 months. (3) Persistent atrial fibrillation: Code(s): I48.19 - Other persistent atrial fibrillation Category: Medical Plan: The patient has persistent atrial fibrillation. He will continue Eliquis 5 mg twice a day for stroke prophylaxis. He was advised not to discontinue Eliquis for a dental procedure due to the risk of stroke. Cardiology has ordered a Holter monitor to assess for rate control. (4) Healthcare maintenance: Code(s): Z00.00 - Encounter for general adult medical examination without abnormal findings Category: Medical Plan: The patient will return in approximately 6 months, around the first week of April, for his annual physical and a follow-up diabetes check. Blood work will be ordered for him to complete prior to that visit. Plan Plan Patient was informed and verbally consented to the use of an ambient scribe for clinic note documentation during this visit. 1. Type 2 Diabetes Mellitus The patient's diabetes is well-controlled with a recent HbA1c of 6.0, which is an improvement from his prior level of 6.6. He will continue metformin 500 mg once daily, which he tolerates well. His follow-up interval will be extended to 6 months, and if his control remains good, a dose reduction may be considered at that time. 2. Heart Failure With Reduced Ejection Fraction The patient has stable HFrEF with an ejection fraction of 20-25%. Despite his concerns about side effects, he has agreed to continue Entresto for neurohormonal modulation. He will also continue metoprolol and furosemide for fluid management. He has declined the financial quantitative analyst's recommendation for an implantable cardioverter-defibrillator (ICD) at this time, despite counseling on the risks of arrhythmia and sudden cardiac . He will follow up with cardiology in 3-4 months. 3. Atrial Fibrillation The patient has persistent atrial fibrillation. He will continue Eliquis 5 mg twice a day for stroke prophylaxis. He was advised not to discontinue Eliquis for a dental procedure due to the risk of stroke. Cardiology has ordered a Holter monitor to assess for rate control. 4. Health Maintenance The patient will return in approximately 6 months, around the first week of April, for his annual physical and a follow-up diabetes check. Blood work will be ordered for him to complete prior to that visit. Discussion Notes I informed the patient that his diabetes is very well-controlled, with his HbA1c improving to 6.0, and recommended he continue his current dose of metformin. We reviewed his financial quantitative analyst's recent note, and I explained that although his heart's pumping function remains significantly weak at 20-25%, placing him at high risk for ventricular arrhythmias, the financial quantitative analyst recommended an ICD, which he declined. I acknowledged his concerns about Entresto causing side effects such as constipation and neuropathy but informed him these are not likely related to the medication, and he agreed to continue taking it. Regarding his loose dental cap, I advised him not to stop taking Eliquis for any dental work due to the high risk of stroke associated with his atrial fibrillation. We agreed to extend his follow-up to 6 months, which will coincide with his annual physical exam in April. Orders: Orders AMB Hemoglobin A1c Today E11.9 - Type 2 diabetes mellitus without complications Erythrocyte Sedimentation Rate Today Z00.00 - Encounter for general adult medical examination without abnormal findings Microalbumin, Random (w Creat) Today Z00.00 - Encounter for general adult medical examination without abnormal findings Vitamin B12 and Folate Today Z00.00 - Encounter for general adult medical examination without abnormal findings Vitamin D 25-OH Total Today Z00.00 - Encounter for general adult medical examination without abnormal findings TSH reflex Free T4 Today Z00.00 - Encounter for general adult medical examination without abnormal findings PSA,Total (Free>4and<10) Today Z00.00 - Encounter for general adult medical examination without abnormal findings Hemoglobin A1c Today Z00.00 - Encounter for general adult medical examination without abnormal findings Lipid Panel Today Z00.00 - Encounter for general adult medical examination without abnormal findings Magnesium Today Z00.00 - Encounter for general adult medical examination without abnormal findings C Reactive Protein Today Z00.00 - Encounter for general adult medical examination without abnormal findings Complete Blood Count Auto Diff Today Z00.00 - Encounter for general adult medical examination without abnormal findings Comprehensive [place]. Panel Fast Today Z00.00 - Encounter for general adult medical examination without abnormal findings UA CC w/rflx Micro + Cult Today Z00.00 - Encounter for general adult medical examination without abnormal findings Patient Instructions: Patient Instructions - Continue taking all your medications as prescribed, especially your heart medications and Eliquis. - Do not stop taking your blood thinner, Eliquis, for any reason, including for dental work, without speaking to your heart doctor first. Stopping it could increase your risk of a stroke. - Your diabetes is doing very well. We will check it again in 6 months. - Your next appointment will be in about 6 months, around the first week of April, for your yearly physical. - We will order blood work for you to complete before your next visit. - Continue to follow-up with your heart doctor in 3 to 4 months as they recommended.
--- OUTSIDE RECORDS SUMMARY | 2025-10-03 16:57 | XMS_ITS | Patient Health Record ---
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 Name Role Phone Benjamín (RETIRED) Osiel BAKER Primary Care Provider Unavailable Zechariah Paulson Unavailable [phone] Reason For Referral No Information Medications Medication [...] W/U Status Risk Notes Problem Abnormal feces ([id number]) Heme + stool (R19.5) Active confirmed Plan Of Treatment No Information Insurance Providers Payer Name Payer Address Payer Phone Subscriber Number Group Number Insured Name Patient Relationship to Insured Coverage Start Date Coverage End Date MEDICARE OF [place] [address] [place] [id number] [phone] [id number] ELISEOELIZABETH Jordan GEOVANNY Self - patient is the insured [employer] ATT[employer] CLAIMS [address] [place] [phone] [id number] GEOVANNY MONREAL Self - patient is the insured Medical (General) History Medical History History ICD Code COPD Follicular lymphoma [address] Dr. Carbajal Gout Edema HTN Denies [place],DM,CVA,renal disease Surgical History Surgery Date(Month/Year) Right hernia repair Left leg fracture
== END 2025-10-03 13:29 | disposition home or self-care (01) ==
LOC: HO.HMCSH 13:02
PROVIDERS: PCP Physician Assistant Medical; Visit Provider Physician Assistant Medical
DX: E11.9 Type 2 diabetes mellitus without complications (principal); I50.20 Unspecified systolic (congestive) heart failure; I48.19 Other persistent atrial fibrillation; Z00.00 Encounter for general adult medical examination without abnormal findings

== ENCOUNTER → 2025-10-03 13:02 | Outpatient (BNVA) | payer MEDICARE, SELFPAY | PROVIDERS: PCP Physician Assistant Medical; Visit Provider Physician Assistant Medical | DX: E11.9 Type 2 diabetes mellitus without complications (principal); I50.20 Unspecified systolic (congestive) heart failure; I48.19 Other persistent atrial fibrillation; Z13.31 Encounter for screening for depression | CPT/HCPCS: 83036; 96127; 99212 ==